=== PATIENT | female | born 1990 | race Caucasian/White ===

== ENCOUNTER 2020-10-04 19:30 | Emergency (ER) | payer OTHER, SELFPAY ==
[2020-10-04 19:42] VITALS: BP 137/86; PULSE 77; RESP 20; TEMP 37.1; O2SAT 100
[2020-10-04 20:05] LABS: Bacteria Urine None Seen
[2020-10-04 20:11] LABS: Appearance Urine UA CLEAR
[2020-10-04] MEDS: KETOROLAC 30 MG/ML VIAL 15 MG IV (20:11)
[2020-10-04 20:12] LABS: Color Urine UA ORANGE
[2020-10-04 20:15] LABS: Add Manual Diff / Slide Review NO; Basophils Absolute Auto 100 /uL (0-100); Basophils Percent Auto 0.8 % (0-2); Eosinophils Absolute Auto 300 /uL (0-450); Eosinophils Percent Auto 2.9 % (2-4); Hematocrit 41.9 % (36-46); Hemoglobin 14.3 g/dL (12.0-16.0); Lymphocytes Absolute Auto 4300 /uL (1100-4500); Lymphocytes Percent Auto 40.2 % (25-40); Mean Corpuscular Hemoglobin 29.9 PG (26-34); Mean Corpuscular Volume 87.8 fL (80-100); Monocytes Absolute Auto 500 /uL (0-900); Neutrophils Absolute Auto 5400 /uL (1500-7000); Neutrophils Percent Auto 51.1 % (50-75); Platelet Count 332 X10^3/uL (150-400); Red Blood Cell Count 4.77 X10^6/uL (4.0-5.2); Red Cell Distribution Width 13.3 % (11.6-14.8); White Blood Cell Count 10.7 X10^3/uL (4.5-11.0)
[2020-10-04 20:18] LABS: Culture Indicated Urine Cult Not Indicated; RBC Urine 0-1/HPF (0-5/HPF); Squamous Epithelial Cell Urine 0-1 /HPF (0-5/HPF); WBC Urine 0-1/HPF (0-5/HPF)
[2020-10-04 20:20] LABS: Alanine Aminotransferase 12 IU/L (<35); Albumin 4.2 g/dL (3.5-5.0); Albumin Globulin Ratio 1.2 (1.0-2.8); Alkaline Phosphatase 102 U/L (38-126); Aspartate Aminotransferase 21 IU/L (14-36); BUN Creatinine Ratio 23.1 (6-22); Bilirubin Total 0.4 mg/dL (0.2-1.3); Blood Urea Nitrogen 15 mg/dL (7-17); Calcium 9.7 mg/dL (8.4-10.2); Carbon Dioxide 26 mmol/L (22-32); Chloride 102 mmol/L (98-107); Estimated Glomerular Filt Rate > 60.0 mL/min (>60); Globulin 3.6 g/dL (1.7-4.1); Glucose 99 mg/dL (70-100); HEMOLYSIS 17 (0-50); Lipase 258 U/L (23-300); Potassium 4.3 mmol/L (3.4-5.1); Sodium 136 mmol/L (137-145); Total Protein 7.8 g/dL (6.3-8.2)
[2020-10-04 20:22] LABS: Prothrombin Time 11.5 SECONDS (10.1-12.7)
[2020-10-04 20:25] LABS: PTT Partial Thromboplastin Tim 32 SECONDS (26.4-36.2)
--- NOTE | 2020-10-04 20:38 | ED_ITS ---
HPI - Abdominal Pain General Chief Complaint: Abdominal Pain Stated Complaint: RIGHT SIDE BACK PAIN Time Seen by Provider: 10/04/20 20:13 Source: patient Mode of arrival: Ambulatory History of Present Illness HPI narrative: Patient brought here by . Patient visiting here from [place]. Complains of right flank pain starting last night. Sharp pain. No nausea vomiting fever. Has baseline urinary frequency is not new for her. Patient has long history of kidney stones with nephrostomy due to hydronephrosis years ago. No fever chills cough cold congestion. No hematuria. Has history of ureteral stents and lithotripsy in the past. Patient points to nephrostomy site/surgical site on the right flank as source of pain. Related Data Allergies Allergy/AdvReac Type Severity Reaction Status Date / Time Penicillins Allergy Verified 10/04/20 19:46 Review of Systems Review of Systems Narrative: GENERAL: Denies chills, fatigue, malaise, fever, sweats. HEENT: Denies sinus pain, ear pain, sore throat RESPIRATORY: Denies dyspnea, cough CARDIOVASCULAR: Denies chest pain, palpitations GASTROINTESTINAL: Denies nausea, vomiting, abdominal pain, complains flank pain : Denies dysuria, complaints chronic frequency, denies hematuria MUSCULOSKELETAL: denies muscle or bony pain SKIN: Denies rash, skin lesions NEUROLOGIC: Denies weakness, numbness ROS Unobtainable: All systems reviewed & are unremarkable except as noted in HPI and below Exam Narrative Exam Narrative: GENERAL: in no distress, not toxic not dyspneic HEAD: Normocephalic. EYES: Pupils equal round No scleral icterus. No injection no discharge ENT: Mucous membranes moist. NECK: Trachea midline. CARDIOVASCULAR: Regular rate and rhythm without murmurs RESPIRATORY: Clear to auscultation. Breath sounds equal bilaterally. No wheezes, rales, or rhonchi. GASTROINTESTINAL: Abdomen soft, non-tender bowel sounds present no peritoneal signs EXTREMITIES: No gross deformities. BACK: Mild right CVA tenderness at the nephrostomy surgical site. Area is clean dry intact. No erythema. No discharge NEURO: AOx4. SKIN: Warm and dry PSYCH: Not anxious, is cooperative Initial Vital Signs Initial Vital Signs: Vital Signs Temperature 98.7 F 10/04/20 19:42 Pulse Rate 77 10/04/20 19:42 Respiratory Rate 20 10/04/20 19:42 Blood Pressure 137/86 10/04/20 19:42 Pulse Oximetry 100 10/04/20 19:42 Course Course Course Narrative: No new issues during course of stay. Pain controlled. Orders Ordered: ED Orders 10/04/20 20:00 Complete Blood Count AUTO DIFF Stat Comprehensive Metabolic Panel Stat Lipase Stat Partial Thromboplastin Time Stat Test Serum,Qual Stat Prothrombin Time INR Stat 10/04/20 20:05 Urinalysis and Microscopic Stat 10/04/20 20:37 CT abdomen pelvis wo con Stat Discontinued Medications Hydrocodone Bitart/Acetaminophen (Hydrocodone/Acet 5/325 Prepack) 1 bottle [facility] [place] SEE[facility] ONE Stop: 10/04/20 22:03 Last Admin: 10/04/20 22:17 Dose: 1 bottle Documented by: NAZIA Hydromorphone HCl (Hydromorphone 1 Mg Inj) 1 mg IV NOW ONE Stop: 10/04/20 20:38 Last Admin: 10/04/20 20:44 Dose: 1 mg Documented by: JONI Ketorolac Tromethamine (Ketorolac 30 Mg/Ml Vial) 15 mg IV NOW ONE Stop: 10/04/20 20:04 Last Admin: 10/04/20 20:11 Dose: 15 mg Documented by: NAZIA Ondansetron HCl (Ondansetron 4 Mg/2 Ml Inj) 4 mg IV NOW ONE Stop: 10/04/20 20:38 Last Admin: 10/04/20 20:44 Dose: 4 mg Documented by: JONI Ondansetron HCl (Ondansetron 4 Mg Odt Prepack) 1 bottle [facility] [place] [facility] ONE Stop: 10/04/20 22:03 Last Admin: 10/04/20 22:17 Dose: 1 bottle Documented by: NAZIA Reevaluation(s) Reevaluation #1: Reviewed results with patient. Agrees with treatment plan and follow-up. Referral given for Urology. Pain controlled Time: 22:00 Vital Signs Vital signs: Vital Signs - 8 hr 10/04/20 19:42 10/04/20 22:09 10/04/20 22:11 Temperature 98.7 F Pulse Rate 77 61 Respiratory Rate 20 Blood Pressure 137/86 144/90 H Pulse Oximetry 100 99 98 MDM - Abdominal Pain Differential Diagnosis Differential diagnosis: Likely abdominal pain, calculus of kidney, diverticulitis, gastroenteritis, pancreatitis and small bowel obstruction Lab Data Attestation: I reviewed the patient's lab results. Result diagrams: 10/04/20 20:00 10/04/20 20:00 Labs: Lab Results 10/04/20 10/04/20 10/04/20 Range/Units 20:00 20:00 20:00 WBC 10.7 (4.5-11.0) X10^3/uL RBC 4.77 (4.0-5.2) X10^6/uL Hgb 14.3 (12.0-16.0) g/dL Hct 41.9 (36-46) % MCV 87.8 (80-100) fL MCH 29.9 (26-34) PG MCHC 34.0 (30-36) % RDW 13.3 (11.6-14.8) % Plt Count 332 (150-400) X10^3/uL Neut % (Auto) 51.1 (50-75) % Lymph % (Auto) 40.2 H (25-40) % [place] % (Auto) 5.0 (3-14) % Eos % (Auto) 2.9 (2-4) % Baso % (Auto) 0.8 (0-2) % Neut # (Auto) 5400 (6104-0438) /uL Lymph # (Auto) 4300 (6161-6264) /uL [place] # (Auto) 500 (0-900) /uL Eos # (Auto) 300 (0-450) /uL Baso # (Auto) 100 (0-100) /uL PT 11.5 (10.1-12.7) SECONDS INR 1.0 (0.9-1.3) APTT 32 (26.4-36.2) SECONDS Sodium 136 L (137-145) mmol/L Potassium 4.3 (3.4-5.1) mmol/L Chloride 102 (98-107) mmol/L Carbon Dioxide 26 (22-32) mmol/L BUN 15 (7-17) mg/dL Creatinine 0.65 (0.52-1.04) mg/dL Estimated GFR > 60.0 (>60) mL/min BUN/Creatinine Ratio 23.1 H (6-22) Glucose 99 (70-100) mg/dL Calcium 9.7 (8.4-10.2) mg/dL Total Bilirubin 0.4 (0.2-1.3) mg/dL AST 21 (14-36) IU/L ALT 12 (<35) IU/L Alkaline Phosphatase 102 (38-126) U/L Total Protein 7.8 (6.3-8.2) g/dL Albumin 4.2 (3.5-5.0) g/dL Globulin 3.6 (1.7-4.1) g/dL Albumin/Globulin Ratio 1.2 (1.0-2.8) Lipase 258 (23-300) U/L Serum , Qual (Negative) Urine Color Urine Appearance Urine pH Ur Specific [place] Urine Protein Urine Glucose (UA) Urine Ketones Urine Occult Blood Urine Nitrate Urine Bilirubin Urine Urobilinogen Ur Leukocyte Esterase Urine RBC (0-5/HPF) Urine WBC (0-5/HPF) Ur Squamous Epith Cells (0-5/HPF) Urine Bacteria (None) Ur Culture Indicated? 10/04/20 10/04/20 Range/Units 20:00 20:05 WBC (4.5-11.0) X10^3/uL RBC (4.0-5.2) X10^6/uL Hgb (12.0-16.0) g/dL Hct (36-46) % MCV (80-100) fL MCH (26-34) PG MCHC (30-36) % RDW (11.6-14.8) % Plt Count (150-400) X10^3/uL Neut % (Auto) (50-75) % Lymph % (Auto) (25-40) % [place] % (Auto) (3-14) % Eos % (Auto) (2-4) % Baso % (Auto) (0-2) % Neut # (Auto) (7260-1083) /uL Lymph # (Auto) (2673-4337) /uL [place] # (Auto) (0-900) /uL Eos # (Auto) (0-450) /uL Baso # (Auto) (0-100) /uL PT (10.1-12.7) SECONDS INR (0.9-1.3) APTT (26.4-36.2) SECONDS Sodium (137-145) mmol/L Potassium (3.4-5.1) mmol/L Chloride (98-107) mmol/L Carbon Dioxide (22-32) mmol/L BUN (7-17) mg/dL Creatinine (0.52-1.04) mg/dL Estimated GFR (>60) mL/min BUN/Creatinine Ratio (6-22) Glucose (70-100) mg/dL Calcium (8.4-10.2) mg/dL Total Bilirubin (0.2-1.3) mg/dL AST (14-36) IU/L ALT (<35) IU/L Alkaline Phosphatase (38-126) U/L Total Protein (6.3-8.2) g/dL Albumin (3.5-5.0) g/dL Globulin (1.7-4.1) g/dL Albumin/Globulin Ratio (1.0-2.8) Lipase (23-300) U/L Serum , Qual Negative (Negative) Urine Color [place] Urine Appearance Clear Urine pH TNP Ur Specific [place] TNP Urine Protein TNP Urine Glucose (UA) TNP Urine Ketones TNP Urine Occult Blood TNP Urine Nitrate TNP Urine Bilirubin TNP Urine Urobilinogen TNP Ur Leukocyte Esterase TNP Urine RBC 0-1/hpf (0-5/HPF) Urine WBC 0-1/hpf (0-5/HPF) Ur Squamous Epith Cells 0-1 /hpf (0-5/HPF) Urine Bacteria None seen (None) Ur Culture Indicated? Cult not indicated Imaging Data CT scan - abdomen/pelvis: Radiologist's Impression: [address] [id number] Scan ReportSigned Patient: Diandra Whitlock [facility]#: [id number]: 1990Acct:[id number]/Sex: 30 / FDate of Service: 10/04/20Loc: EDAccession Number: [id number] Procedure: CT abdomen pelvis wo con Ordering Provider: Jeffery Jerez MD PROCEDURE: CT ABDOMEN PELVIS WO CON INDICATIONS: Right flank pain/kidney stone TECHNIQUE: Noncontrast 5 mm thick sections acquired from the diaphragms to the symphysis. 5 mm coronal and sagittal reformats were then performed. For radiation dose reduction, the following was used: automated exposure control, adjustment of mA and/or kV according to patient size. COMPARISON: None. FINDINGS: ABDOMEN: Lung bases: Normal. Heart: No significant findings. Liver: Normal. Gallbladder: Normal Bile ducts: Mid Pancreas: Normal. Spleen: Normal. Adrenals: Normal. Kidneys and Ureters: Chronic appearing right renal cortical scarring and atrophy. Right nephrolithiasis measuring up to 1 mm image 23/. No hydronephrosis. Subcentimeter renal foci, statistically cysts, although technically too small to characterize accurately and therefore nonspecific. Stomach and duodenum: Normal. Bowel: Appendix is not clearly identified however no suspicious pericecal inflammatory changes are seen. Other: No free fluid or air. Abdominal nodes: Normal. Aorta and IVC: Normal in size. Ventral wall: Small fat containing periumbilical hernia. PELVIS: Bladder: Normal. Inguinal region: No hernia. Pelvic nodes: Normal. Bones: No suspicious bony lesions. No vertebral body compression fractures. IMPRESSION: Right nephrolithiasis measuring up to 1 mm. No hydronephrosis Chronic right renal atrophy and scarring. Dictated by: Deepak Ojeda M.D. on 10/04/2020 at 21:24 Approved by: Deepak Ojeda M.D. on 10/04/2020 at 21:29 MDM Narrative Medical decision making narrative: Appropriate for discharge home. Workup evaluation exam reassuring. Will give patient referral to Urology locally. Patient is leaving to go back home to [place] in 2 weeks. Discharge Plan Departure Patient Disposition: Home Clinical Impression: Calculus of kidney Instructions: DI for Kidney Stones Activity Restrictions/Additional Instructions: No driving or operating machinery tonight. Call provided urology office tomorrow for office recheck within a week. Return if worse or any questions or concerns. Referrals: Maria Lund MD [Physician] -
[2020-10-04] MEDS: ONDANSETRON 4 MG/2 ML INJ IV (20:44)
[2020-10-04] MEDS: HYDROMORPHONE 1 MG INJ IV (20:44)
[2020-10-04 20:50] LABS: Pregnancy Test Serum,Qual Negative (Negative)
[2020-10-04 22:09] VITALS: O2SAT 99
[2020-10-04 22:11] VITALS: BP 144/90; PULSE 61; O2SAT 98
[2020-10-04] MEDS: ONDANSETRON 4 MG ODT PREPACK 1 BOTTLE MISC (22:17)
[2020-10-04] MEDS: HYDROCODONE/ACET 5/325 PREPACK 1 BOTTLE MISC (22:17)
== END 2020-10-04 22:22 | disposition home or self-care (01) ==
PROVIDERS: Emergency Provider Emergency Medicine
DX: N20.0 Calculus of kidney (principal)
CPT/HCPCS: 36415; 74176; 80053; 81001; 83690; 84703; 85025; 85610; 85730; 96374; 96375; 99284; J1170; J1885; J2405

== ENCOUNTER 2020-10-13 19:19 | Inpatient (IN) | payer OTHER, SELFPAY ==
[2020-10-13] VITALS (10 sets, daily range): BP systolic 114–132; BP diastolic 67–86; PULSE 101–125; RESP 21–29; TEMP 38.5; O2SAT 96–99; BMI 38.2
[2020-10-13] MEDS: METOCLOPRAMIDE 10 MG/2 ML INJ IV (20:18)
[2020-10-13] MEDS: LACTATED RINGERS 478 ML IV (20:18)
--- NOTE | 2020-10-13 20:20 | ED_ITS ---
HPI - Headache General Chief Complaint: Headache Stated Complaint: migraine headache Time Seen by Provider: 10/13/20 19:38 Source: patient Mode of arrival: Ambulatory Limitations: no limitations History of Present Illness HPI Narrative: 30F nonsmoker with noncontributory medical history presents with a chief complaint of a few days of fever, chills, right flank pain as well as headache, neck pain and nausea and vomiting. She was seen here about a week ago and found to have a 1 mm kidney stone and was discharged on appropriate medications and given follow-up. She was seen and evaluated at an outside facility yesterday and had a repeat CT and extensive workup. She states that the headache has been gradually worsening and seems to be made worse when she moves her head or her neck. She denies any strong history of headaches. She has had nausea vomiting, poor appetite. She denies any neurologic symptoms such as blurred vision, trouble with speech or focal neurologic findings. She has had no chest pain or shortness of breath. She does have continued right flank pain and denies dysuria, frequency or urgency. She denies any vaginal bleeding or discharge. She denies recent travel or exposure to ill persons MD Complaint: headache Onset (ago): day(s) Onset description: gradual Location: diffuse Severity: moderate Quality: aching and throbbing Relieving factors: rest Exacerbating factors: movement of head/neck Associated symptoms: fever, nausea, vomiting and neck stiffness Treatments prior to arrival: none Related Data Allergies Allergy/AdvReac Type Severity Reaction Status Date / Time Penicillins Allergy Verified 10/04/20 19:46 Review of Systems Constitutional Constitutional: Reports chills, Denies fatigue, Reports fever(s), Denies frequent falls, Denies lethargy and Denies weakness Eyes Eyes: Denies change in vision, Denies eye discharge, Denies irritation and Denies loss of vision ENT Ears, Nose, Mouth, and Throat: Denies change in voice, Denies dizziness, Reports neck pain, Denies sore throat and Denies throat swelling Cardiovascular Cardiovascular: Denies chest pain, Denies irregular heart rhythm, Denies light headedness, Reports palpitations, Denies dyspnea, Denies dyspnea on exertion and Denies orthopnea Respiratory Respiratory: Denies cough, Denies dyspnea, Denies dyspnea on exertion and Denies wheezing Gastrointestinal Gastrointestinal: Denies abdominal pain, Denies change in bowel habits, Denies diarrhea, Reports nausea and Reports vomiting Musculoskeletal Musculoskeletal: Reports myalgias, Reports neck pain and Denies numbness Integumentary/Breasts Skin/Breast: Denies pruritus, Denies erythema, Denies rash and Denies wounds Neurologic Neurologic: Denies behavioral changes, Denies confusion, Denies dizziness, Denies frequent falls, Denies loss of vision, Denies numbness and Denies weakness Psychiatric Psychiatric: Denies anxiety, Denies behavioral changes, Denies confusion, Denies depression, Denies homicidal ideation and Denies suicidal ideation Endocrine Endocrine: Denies fatigue, Denies flushing and Reports palpitations Hematologic/Lymphatic Hematologic/Lymphatic: Denies easy bruising Allergic/Immunologic Allergic/Immunologic: Denies urticaria, Denies throat swelling and Denies wh eezing Patient History Social History Smoking Status: Never smoker Smoking Status: Never smoker Substance Use Type: does not use Exam Narrative Exam Narrative: GENERAL: [30] year old patient appears stated age. Well- nourished, well-developed patient, in mild distress. Obviously uncomfortable HEAD: Atraumatic. Normocephalic. EYES: Pupils equal round and reactive. Extraocular motions intact. No scleral icterus. No injection or drainage. ENT: Nose without bleeding, purulent drainage. Throat without erythema, t onsillar hypertrophy or exudate. Airway patent. NECK: Trachea midline. Non tender CARDIOVASCULAR: Tachycardic and regular rhythm without murmurs, gallops, or rubs. RESPIRATORY: Clear to auscultation. Breath sounds equal bilaterally. No wheezes, rales, or rhonchi. GASTROINTESTINAL: Abdomen soft, non-tender, nondistended. EXTREMITIES: No edema or joint tenderness. BACK: R flank pain, CVA pain. No midline tenderness NEURO: AOx3. SKIN: No rash or erythema of visible areas Initial Vital Signs Initial Vital Signs: Vital Signs Temperature 101.3 F H 10/13/20 19:54 Pulse Rate 125 H 10/13/20 19:54 Respiratory Rate 25 H 10/13/20 19:54 Blood Pressure 122/81 10/13/20 19:54 Pulse Oximetry 98 10/13/20 19:54 Course Orders Ordered: ED Orders 10/13/20 20:10 Basic Metabolic Panel Stat Complete Blood Count AUTO DIFF Stat Lactate (Lactic Acid) Stat Magnesium Stat 10/13/20 20:18 Blood Culture Stat 10/13/20 20:22 Influenza A & B (PCR) Stat 10/13/20 20:31 COVID19 - ADMIT (FUR JOINER swab/PCR) Stat 10/13/20 21:08 Urine Microscopic Stat 10/13/20 21:43 US renal complete Stat Lactated Ringer's (Lactated Ringers) 1,434 mls @ 478 mls/hr 30 ml/kg infuse over 3 hr (1434 ml) IV NOW ONE Stop: 10/13/20 23:01 Last Admin: 10/13/20 20:18 Dose: 478 mls/hr Documented by: J CARLOS Discontinued Medications Hydromorphone HCl (Hydromorphone 0.5 Mg Inj) 0.5 mg IV NOW ONE Stop: 10/13/20 22:07 Last Admin: 10/13/20 22:09 Dose: 0.5 mg Documented by: Ceftriaxone Sodium 1,000 mg/ (Sodium Chloride) 100 mls @ 200 mls/hr IV NOW ONE Stop: 10/13/20 21:44 Last Admin: 10/13/20 21:56 Dose: 200 mls/hr Documented by: [email or web address] Ketorolac Tromethamine (Ketorolac 30 Mg/Ml Vial) 15 mg IV NOW ONE Stop: 10/13/20 20:34 Last Admin: 10/13/20 20:41 Dose: 15 mg Documented by: TERI Metoclopramide HCl (Metoclopramide 10 Mg/2 Ml Inj) 10 mg IV NOW ONE Stop: 10/13/20 20:03 Last Admin: 10/13/20 20:18 Dose: 10 mg Documented by: J CARLOS Vital Signs Vital signs: Vital Signs - 8 hr 10/13/20 19:54 10/13/20 20:03 10/13/20 20:30 Temperature 101.3 F H Pulse Rate 125 H 119 H 121 H Respiratory Rate 25 H 29 H Blood Pressure 122/81 129/86 Pulse Oximetry 98 99 96 10/13/20 20:44 10/13/20 21:00 10/13/20 21:30 Temperature Pulse Rate 108 H 111 H 112 H Respiratory Rate 28 H 29 H 21 Blood Pressure 132/86 123/78 121/69 Pulse Oximetry 97 96 97 MDM - Headache Lab Data Result diagrams: 10/13/20 20:10 10/13/20 20:10 Labs: Lab Results 10/13/20 10/13/20 10/13/20 Range/Units 20:10 20:10 20:10 WBC 23.6 H (4.5-11.0) X10^3/uL RBC 4.42 (4.0-5.2) X10^6/uL Hgb 12.9 (12.0-16.0) g/dL Hct 38.3 (36-46) % MCV 86.5 (80-100) fL MCH 29.2 (26-34) PG MCHC 33.8 (30-36) % RDW 13.3 (11.6-14.8) % Plt Count 253 (150-400) X10^3/uL Neut % (Auto) 90.8 H (50-75) % Lymph % (Auto) 2.9 L (25-40) % [place] % (Auto) 6.0 (3-14) % Eos % (Auto) 0.0 L (2-4) % Baso % (Auto) 0.3 (0-2) % Neut # (Auto) 02951 H (6346-0988) /uL Lymph # (Auto) 700 L (8886-9091) /uL [place] # (Auto) 1400 H (0-900) /uL Eos # (Auto) 0 (0-450) /uL Baso # (Auto) 100 (0-100) /uL Sodium 130 L (137-145) mmol/L Potassium 3.9 (3.4-5.1) mmol/L Chloride 101 (98-107) mmol/L Carbon Dioxide 20 L (22-32) mmol/L BUN 9 (7-17) mg/dL Creatinine 0.60 (0.52-1.04) mg/dL Estimated GFR > 60.0 (>60) mL/min BUN/Creatinine Ratio 15.0 (6-22) Glucose 129 H (70-100) mg/dL Lactate 1.7 (0.7-2.1) mmol/L Calcium 9.1 (8.4-10.2) mg/dL Magnesium 1.6 (1.6-2.3) mg/dL Influenza A (RT-PCR) (NEGATIVE) Influenza B (RT-PCR) (NEGATIVE) 10/13/20 Range/Units 20:22 WBC (4.5-11.0) X10^3/uL RBC (4.0-5.2) X10^6/uL Hgb (12.0-16.0) g/dL Hct (36-46) % MCV (80-100) fL MCH (26-34) PG MCHC (30-36) % RDW (11.6-14.8) % Plt Count (150-400) X10^3/uL Neut % (Auto) (50-75) % Lymph % (Auto) (25-40) % [place] % (Auto) (3-14) % Eos % (Auto) (2-4) % Baso % (Auto) (0-2) % Neut # (Auto) (7078-5421) /uL Lymph # (Auto) (1413-6982) /uL [place] # (Auto) (0-900) /uL Eos # (Auto) (0-450) /uL Baso # (Auto) (0-100) /uL Sodium (137-145) mmol/L Potassium (3.4-5.1) mmol/L Chloride (98-107) mmol/L Carbon Dioxide (22-32) mmol/L BUN (7-17) mg/dL Creatinine (0.52-1.04) mg/dL Estimated GFR (>60) mL/min BUN/Creatinine Ratio (6-22) Glucose (70-100) mg/dL Lactate (0.7-2.1) mmol/L Calcium (8.4-10.2) mg/dL Magnesium (1.6-2.3) mg/dL Influenza A (RT-PCR) Flu a negative (NEGATIVE) Influenza B (RT-PCR) Flu b negative (NEGATIVE) Point of Care Testing Test Results Negative Urine Dip Bedside Urine Glucose Negative Bedside Urine Bilirubin - Negative Bedside Urine Ketone +/- 5 Urine Specific [place] 1.020 Bedside Urine Occult Blood - Negative Bedside Urine pH 6.5 Bedside Urine Protein + 30 Bedside Urine Urobilinogen - Negative Bedside Urine Nitrite - Negative Bedside Urine Leukocytes + 70 Esterase Imaging Data Renal US: Radiologist's Impression: No obstruction or ureteral stone MDM Narrative Medical decision making narrative: Patient feeling much better after above-st ated therapies, multiple diagnoses such as urosepsis with kidney stone and possible obstructive uropathy considered. Pyelonephritis is most likely given urine findings, fever, elevated white count and reproducible CVA tenderness. PID and other pelvic inflammatory or infectious etiologies considered but patient has no abnormal or foul-smelling discharge, no suprapubic tenderness. We did discuss the possibility of meningitis given her headache and neck pain in the setting of fever, however after further evaluation and her response to the above-stated therapies we have agreed to hold off on lumbar puncture at this point time given the low likelihood of meningitis. Patient will require hospi talization for ongoing IV fluids, pain control and IV antibiotics. Discharge Plan Departure Patient Disposition: Admitted as Observation Clinical Impression: Pyelonephritis Sepsis Qualifiers: Sepsis type: sepsis due to unspecified organism Sepsis acute organ dysfunction status: without acute organ dysfunction Qualified Code(s): A41.9 - Sepsis, unspecified organism
[2020-10-13 20:29] LABS: Add Manual Diff / Slide Review NO; Basophils Absolute Auto 100 /uL (0-100); Basophils Percent Auto 0.3 % (0-2); Eosinophils Absolute Auto 0 /uL (0-450); Hematocrit 38.3 % (36-46); Hemoglobin 12.9 g/dL (12.0-16.0); Lymphocytes Absolute Auto 700 /uL (1100-4500); Lymphocytes Percent Auto 2.9 % (25-40); Mean Corpuscular HGB Conc 33.8 % (30-36); Mean Corpuscular Hemoglobin 29.2 PG (26-34); Mean Corpuscular Volume 86.5 fL (80-100); Monocytes Absolute Auto 1400 /uL (0-900); Neutrophils Absolute Auto 21500 /uL (1500-7000); Neutrophils Percent Auto 90.8 % (50-75); Platelet Count 253 X10^3/uL (150-400); Red Blood Cell Count 4.42 X10^6/uL (4.0-5.2); Red Cell Distribution Width 13.3 % (11.6-14.8); White Blood Cell Count 23.6 X10^3/uL (4.5-11.0)
[2020-10-13 20:38] LABS: Lactate (Lactic Acid) 1.7 mmol/L (0.7-2.1)
[2020-10-13] MEDS: KETOROLAC 30 MG/ML VIAL 15 MG IV (20:41)
[2020-10-13 20:52] LABS: Blood Urea Nitrogen 9 mg/dL (7-17); Calcium 9.1 mg/dL (8.4-10.2); Carbon Dioxide 20 mmol/L (22-32); Chloride 101 mmol/L (98-107); Estimated Glomerular Filt Rate > 60.0 mL/min (>60); Glucose 129 mg/dL (70-100); HEMOLYSIS < 15 (0-50); Magnesium 1.6 mg/dL (1.6-2.3); Potassium 3.9 mmol/L (3.4-5.1); Sodium 130 mmol/L (137-145)
[2020-10-13 20:58] LABS: Influenza A - CEPHEID Flu A NEGATIVE (NEGATIVE); Influenza B - CEPHEID Flu B NEGATIVE (NEGATIVE)
--- NOTE | 2020-10-13 21:43 | DI.US.S_ITS ---
PROCEDURE: US RENAL COMPLETE INDICATIONS: UTI; SEPSIS; STONE TECHNIQUE: Real-time scanning was performed of the kidneys and bladder, with image documentation. COMPARISON: None. FINDINGS: Kidneys: Kidneys are normal in size. Right kidney measures 11.9 cm long; left kidney measures 13.4 cm long. Right renal cortical thickness is 1.6 cm; left renal cortical thickness is 2.4 cm. Renal cortical echotexture is normal. No hydronephrosis. Small 4-7 millimeter nonobstructing stones noted in the right kidney. No suspicious solid mass lesions. Bladder: Urinary bladder was nondistended the time of image acquisition and cannot be evaluated. Miscellaneous: No free pelvic fluid. IMPRESSION: 1. Nonobstructing right renal stones. 2. No hydronephrosis. Dictated by: Kathrin Watson MD, PhD on 10/14/2020 at 8:19 Approved by: Kathrin Watson MD, PhD on 10/14/2020 at 8:23
[2020-10-13] MEDS: cefTRIAXone 1,000 MG in SODIUM CHLORIDE 0.9% 100 ML 200 ML IV (21:56)
[2020-10-13] MEDS: HYDROMORPHONE 0.5 MG INJ IV (22:09)
[2020-10-13 22:59] LABS: COVID19 - ADMIT (NP swab/PCR) Negative (Negative)
[2020-10-14] VITALS (15 sets, daily range): BP systolic 103–138; BP diastolic 62–88; PULSE 86–102; RESP 16–24; TEMP 36.1–36.8; O2SAT 95–98; BMI 38.3
[2020-10-14] MEDS: HYDROMORPHONE 0.5 MG INJ IV (00:13)
[2020-10-14 00:17] LABS: RBC Urine None Seen (0-5/HPF)
[2020-10-14] MEDS: SODIUM CHLORIDE 0.9% 1,000 ML 60 ML IV (00:50)
[2020-10-14 00:53] LABS: Bacteria Urine Few (2-10); Culture Indicated Urine Specimen Cultured; Squamous Epithelial Cell Urine 1-5 /HPF (0-5/HPF); WBC Urine 1-5/HPF (0-5/HPF)
[2020-10-14] MEDS: MEROPENEM 1 GM in SODIUM CHLORIDE 0.9% 100 ML 200 ML IV ×3 (00:54→17:06)
[2020-10-14] MEDS: OXYCODONE/ACETAMINOPHEN 5/325 TABLET 2 TAB PO ×4 (01:35→14:19)
[2020-10-14] MEDS: VANCOMYCIN 1,500 MG/300 ML PIGGYBACK 200 MG IV (01:38)
--- NOTE | 2020-10-14 02:15 | PC.ADMIT ---
Addendum entered by Carrol Magallanes R.N. 10/14/20 05:45: States pain did improve to 3/10 with use of Percocet but now pain in right flank back to 6/10. Headache is only 3/10 and denies any neck pain. Medicated with Percocet. Has not voided since admission but did urinate while in ER shortly after 0000. Original Note: patient admitted to room 204 from ER per stretcher but able to walk to the bed. Is alert and oriented. Breath sounds CTA with RA sat of 98%. HRR w/telemetry reading of SR. Denies nausea although was reported to have had emesis x 2 in ER. BT present and abdomen is soft. Denies dysuria, but states she has urinary urgency. Complained of right flank pain/headache and was medicated with Percocet. Able to move self in bed. States she feels generally weak so instructed to call for assistance when needing to go to bathroom and patient verbalized understanding. Bilateral calf SCD's applied. Reviewed plan of care with patient and she verbalizes understanding. Fall risk score is moderate. Oriented to use of call light and bed controls. [address] Admission Note: The patient,Diandra Whitlock,30 y/o, was given written information regarding hospital policies, unit procedures and contact persons. Patient's smoking status: Former smoker. Vital Signs - 8 hr 10/13/20 19:54 10/13/20 20:03 10/13/20 20:30 Temperature 101.3 F H Pulse Rate 125 H 119 H 121 H Respiratory Rate 25 H 29 H Blood Pressure 122/81 129/86 Pulse Oximetry 98 99 96 10/13/20 20:44 10/13/20 21:00 10/13/20 21:30 Temperature Pulse Rate 108 H 111 H 112 H Respiratory Rate 28 H 29 H 21 Blood Pressure 132/86 123/78 121/69 Pulse Oximetry 97 96 97 10/13/20 22:00 10/13/20 22:30 10/13/20 23:00 Temperature Pulse Rate 108 H 107 H 101 H Respiratory Rate 27 H Blood Pressure 114/67 128/77 120/75 Pulse Oximetry 98 97 96 10/13/20 23:30 10/14/20 00:00 10/14/20 00:30 Temperature Pulse Rate 101 H 102 H 97 H Respiratory Rate Blood Pressure 128/72 138/88 Pulse Oximetry 96 97 95 10/14/20 00:31 10/14/20 00:50 10/14/20 01:31 Temperature 98.2 F Pulse Rate 98 H 94 H Respiratory Rate 24 Blood Pressure 123/76 124/82 Pulse Oximetry 95 98 98
[2020-10-14 05:48] LABS: Add Manual Diff / Slide Review NO; Basophils Absolute Auto 0 /uL (0-100); Basophils Percent Auto 0.3 % (0-2); Eosinophils Absolute Auto 0 /uL (0-450); Eosinophils Percent Auto 0.2 % (2-4); Hematocrit 34.2 % (36-46); Hemoglobin 11.5 g/dL (12.0-16.0); Lymphocytes Absolute Auto 1400 /uL (1100-4500); Lymphocytes Percent Auto 8.4 % (25-40); Mean Corpuscular HGB Conc 33.5 % (30-36); Mean Corpuscular Hemoglobin 29.3 PG (26-34); Mean Corpuscular Volume 87.4 fL (80-100); Monocytes Absolute Auto 1300 /uL (0-900); Neutrophils Absolute Auto 13600 /uL (1500-7000); Neutrophils Percent Auto 83.1 % (50-75); Platelet Count 192 X10^3/uL (150-400); Red Blood Cell Count 3.92 X10^6/uL (4.0-5.2); Red Cell Distribution Width 13.3 % (11.6-14.8); White Blood Cell Count 16.3 X10^3/uL (4.5-11.0)
[2020-10-14 06:08] LABS: Lactate (Lactic Acid) 0.9 mmol/L (0.7-2.1)
[2020-10-14 06:10] LABS: Alanine Aminotransferase 15 IU/L (<35); Albumin 2.8 g/dL (3.5-5.0); Albumin Globulin Ratio 0.9 (1.0-2.8); Alkaline Phosphatase 96 U/L (38-126); Aspartate Aminotransferase 17 IU/L (14-36); BUN Creatinine Ratio 18.3 (6-22); Bilirubin Total 0.4 mg/dL (0.2-1.3); Blood Urea Nitrogen 11 mg/dL (7-17); Calcium 8.3 mg/dL (8.4-10.2); Carbon Dioxide 24 mmol/L (22-32); Chloride 105 mmol/L (98-107); Estimated Glomerular Filt Rate > 60.0 mL/min (>60); Glucose 121 mg/dL (70-100); HEMOLYSIS < 15 (0-50); Magnesium 1.8 mg/dL (1.6-2.3); Potassium 3.6 mmol/L (3.4-5.1); Sodium 134 mmol/L (137-145); Total Protein 5.8 g/dL (6.3-8.2)
--- NOTE | 2020-10-14 06:14 | PM.HP.1 ---
History of Present Illness History of Present Illness Date Patient Seen: 10/14/20 Time Patient Seen: 00:28 Chief complaint: migraine headache Narrative: Patient is a 30-year-old female with a chief complaint of a few days of fever, chills, right flank pain as well as headache, neck pain and nausea and vomiting. She was seen here about a week ago and found to have a 1 mm kidney stone and was discharged on appropriate medications and given follow-up. She was seen and evaluated at [facility] yesterday and had a repeat CT and extensive workup. She was treated with IV fluids Zofran, Dilaudid and Toradol-her UA was found to be negative, CT Pelvis/abd: found a small nonobstructing stone in the right kidney no ureteral calculi with mild right perinephric inflammatory changes. Patient reports that she has a chronic history of right renal stones, that she is usually hospitalized at least once a year requiring diagnostic interventions like lithotripsy yearly, has had approximately 8 stents placed in the right kidney does not currently have any in place but the last 1 was 2 years ago. She states that the headache has been gradually worsening and seems to be made worse when she moves her head or her neck. Patient is able to perform a full range of motion with her neck without any difficulty or observed pain. She denies any strong history of headaches. She has had nausea vomiting x 3 days, poor appetite. She denies any neurologic symptoms such as blurred vision, trouble with speech or focal neurologic findings. She has had no chest pain or shortness of breath. She does have continued right flank pain and denies dysuria, frequency or urgency. She denies any vaginal bleeding or discharge. She denies recent travel or exposure to ill persons. Patient's vitals upon admit she was fever I will with a temp of 101.3?, slightly tachycardic at a 112 and increased respiratory rate of 21. Patient had an elevated white count of 23.6 which was an increase from 6/ of 22.2, neut# 21,500, patient's lactate was 1.7, sodium 130, the glucose of 129. Patient's urine was positive for leukocytes, protein, and bacteria was sent for culture. Patient met the SIRS criteria and a sepsis bundle protocol was applied. I personally reviewed patient's [facility] ER records again Patient was admitted for sepsis/pyelonephritis. Patient History Medical History (Updated 10/14/20 @ 06:36 by SILAS Zaragoza) Depression with anxiety Hypertension Medullary sponge kidney Right renal stone Surgical History (Updated 10/14/20 @ 06:36 by SILAS Zaragoza) History of lithotripsy History of nephrostomy History of renal stent Family & Social History Family History Father Hypertension Stroke Mother Cancer Social History: household members spouse,children Prior Living Arrangements House Safety & Behavioral: Feels Safe in Current Yes Environment Been Physically Hurt or No Threatened By a Person Suicidal Ideation Description None Suicide Plan Description No Plan Tobacco & Substance use: Tobacco type cigarettes Smoking Status Former smoker alcohol intake former Substance Use Type does not use Meds Home Medications and Allergies Home Medications Medication Instructions Recorded Confirmed Type acetaminophen-pyrilamine mal 2 tab PO BID PRN 10/14/20 10/14/20 History [Midol (acetaminoph-pyrilamine)] bisacodyl [Stimulant Laxative] 8.6 mg PO Q12H PRN 10/14/20 10/14/20 History escitalopram oxalate 20 mg PO DAILY 10/14/20 10/14/20 History hydrocodone-acetaminophen [Vicodin] 1 tab PO Q6H PRN 10/14/20 10/14/20 History ibuprofen 400 mg PO Q6H PRN 10/14/20 10/14/20 History losartan 100 mg PO DAILY 10/14/20 10/14/20 History metoprolol succinate 50 mg PO DAILY 10/14/20 10/14/20 History ondansetron HCl [Zofran] 4 mg PO Q6H PRN 10/14/20 10/14/20 History phenazopyridine [Pyridium] 200 mg PO QID PRN 10/14/20 10/14/20 History Allergies Allergy/AdvReac Type Severity Reaction Status Date / Time Penicillins Allergy Verified 10/04/20 19:46 Review of Systems Review of Systems ROS: Yes All systems reviewed with the patient and are negative except as otherwise documented Constitutional Constitutional: Reports body ache(s), Reports fatigue, Reports headache(s) and Reports poor appetite ENT Ears, Nose, Mouth, and Throat: Yes headache(s) Genitourinary Comments: Right-sided flank pain Neurologic Neurologic: Reports headache(s) Psychiatric Psychiatric: Reports anxiety Endocrine Endocrine: Reports fatigue Exam Vital Signs (past 8 hours): - 10/13/20 22:30 10/13/20 23:00 10/13/20 23:30 Temperature Pulse Rate 107 H 101 H 101 H Respiratory Rate Blood Pressure 128/77 120/75 128/72 Pulse Oximetry 97 96 96 10/14/20 00:00 10/14/20 00:30 10/14/20 00:31 Temperature Pulse Rate 102 H 97 H 98 H Respiratory Rate Blood Pressure 138/88 123/76 Pulse Oximetry 97 95 95 10/14/20 00:50 10/14/20 01:31 10/14/20 05:10 Temperature 98.2 F 97.9 F Pulse Rate 94 H 100 H Respiratory Rate 24 22 Blood Pressure 124/82 111/62 Pulse Oximetry 98 98 96 Oxygen Delivery Method Room Air Oxygen Flow Rate 0 Narrative Exam Narrative: General: Patient is a well-developed, well-nourished female mildly ill appearing in no distress at this time. HEENT: Normocephalic, atraumatic, extraocular muscles intact, oral pharynx is clear and mucous membranes are dry. Neck is supple and symmetric, trachea is midline, no adenopathy, no thyroid enlargement, nontender, no masses palpated. Negative for JVD Chest: Normal AP diameter and contour without kyphoscoliosis, no nasal flaring, retractions, or tachypneic labored Lungs: Auscultation of all lung tapia are clear without adventitious sounds, wheezes, rhonchi, or rales. Cardio: S1 & S2 with regular rate and rhythm without murmur, rubs, or gallops, no carotid bruit, no cardiac pulsations present. Abdomen: Soft nontender, negative for organomegaly, or masses. Bowel sounds are present in all 4 quadrants without guarding or rebound, positive Right CVA tenderness. Musculoskeletal: Muscle strength and tone are equal within normal limits, no deformity, crepitus, effusions, cyanosis, clubbing or edema present. Full range of motion intact radial and pedal pulses are normal. Skin: Warm dry and intact without rashes, ulcerations or petechiae. Neuro: Alert and orientated x3, strength is +5/5 in all extremities, sensation to touch intact, no gross deficits noted of cranial nerves. Psych: Patient has a well-kept appearance, appropriate affect, mental status attitude thought context and judgment are appropriate for age. Objective Labs Result Diagrams: 10/14/20 05:34 10/14/20 05:34 Labs: Laboratory Results - last 24 hr 10/13/20 10/13/20 10/13/20 20:10 20:10 20:10 WBC 23.6 H RBC 4.42 Hgb 12.9 Hct 38.3 MCV 86.5 MCH 29.2 MCHC 33.8 RDW 13.3 Plt Count 253 Neut % (Auto) 90.8 H Lymph % (Auto) 2.9 L [place] % (Auto) 6.0 Eos % (Auto) 0.0 L Baso % (Auto) 0.3 Neut # (Auto) 97683 H Lymph # (Auto) 700 L [place] # (Auto) 1400 H Eos # (Auto) 0 Baso # (Auto) 100 Sodium 130 L Potassium 3.9 Chloride 101 Carbon Dioxide 20 L BUN 9 Creatinine 0.60 Estimated GFR > 60.0 BUN/Creatinine Ratio 15.0 Glucose 129 H Lactate 1.7 Calcium 9.1 Magnesium 1.6 Total Bilirubin AST ALT Alkaline Phosphatase Total Protein Albumin Globulin Albumin/Globulin Ratio Urine RBC Urine WBC Ur Squamous Epith Cells Urine Bacteria Ur Culture Indicated? SARS-CoV-2 (PCR) Influenza A (RT-PCR) Influenza B (RT-PCR) 10/13/20 10/13/20 10/14/20 20:22 20:31 00:16 WBC RBC Hgb Hct MCV MCH MCHC RDW Plt Count Neut % (Auto) Lymph % (Auto) [place] % (Auto) Eos % (Auto) Baso % (Auto) Neut # (Auto) Lymph # (Auto) [place] # (Auto) Eos # (Auto) Baso # (Auto) Sodium Potassium Chloride Carbon Dioxide BUN Creatinine Estimated GFR BUN/Creatinine Ratio Glucose Lactate Calcium Magnesium Total Bilirubin AST ALT Alkaline Phosphatase Total Protein Albumin Globulin Albumin/Globulin Ratio Urine RBC None seen Urine WBC 1-5/hpf Ur Squamous Epith Cells 1-5 /hpf Urine Bacteria Few (2-10) H Ur Culture Indicated? Specimen cultured SARS-CoV-2 (PCR) Negative Influenza A (RT-PCR) Flu a negative Influenza B (RT-PCR) Flu b negative 10/14/20 10/14/20 10/14/20 05:34 05:34 05:34 WBC 16.3 H RBC 3.92 L Hgb 11.5 L Hct 34.2 L MCV 87.4 MCH 29.3 MCHC 33.5 RDW 13.3 Plt Count 192 Neut % (Auto) 83.1 H Lymph % (Auto) 8.4 L [place] % (Auto) 8.0 Eos % (Auto) 0.2 L Baso % (Auto) 0.3 Neut # (Auto) 32816 H Lymph # (Auto) 1400 [place] # (Auto) 1300 H Eos # (Auto) 0 Baso # (Auto) 0 Sodium 134 L Potassium 3.6 Chloride 105 Carbon Dioxide 24 BUN 11 Creatinine 0.60 Estimated GFR > 60.0 BUN/Creatinine Ratio 18.3 Glucose 121 H Lactate 0.9 Calcium 8.3 L Magnesium 1.8 Total Bilirubin 0.4 AST 17 ALT 15 Alkaline Phosphatase 96 Total Protein 5.8 L Albumin 2.8 L Globulin 3.0 Albumin/Globulin Ratio 0.9 L Urine RBC Urine WBC Ur Squamous Epith Cells Urine Bacteria Ur Culture Indicated? SARS-CoV-2 (PCR) Influenza A (RT-PCR) Influenza B (RT-PCR) Assessment & Plan Assessment & Plan narrative: 1. Sepsis as a result of pyelonephritis, acute, present on admission, in the setting of a nonobstructing right renal stone, acute on chronic and history of medullary sponge kidney right, acute on chronic, present on admission-patient stable -monitor airway, IV access x2 18-16 gauge, antiemetics for nausea and vomiting,consider electrolyte imbalance (K, Na, acid-base balance) -Monitor: Blood pressure, JVD, , urine output, lactate, H&H. -fluid resuscitation: Sepsis protocol then change to normal saline at 60 cc/hour a map goal > 65, urinary output > 0.5 cc/kg/hr -patient placed on telemetry, vital signs Q 4 hour, I&O Q shift goal urinary output> 0.5 milliliters/kilogram per hour, weights daily, diet: Heart healthy Labs: CBC, CMP, lactate, blood cultures, procalcitonin -Watch for increasing pCO2, monitor lactate, calcium, sodium. 2. Hypertension, chronic, not present on admission Continue patient's metoprolol and losartan 3. Depression with anxiety, acute on chronic, present on admission -patient denies suicidal ideation -continue patient's Lexapro 4. Obesity as evidence by BMI of 38.3, acute on chronic, present on admission -consideration will be given to dietary counseling Code status: Full code Surrogate decision maker: Ethan spouse COVID PCR: Negative VTE/DVT prophylaxis: Lovenox 40 mg and SCDs Scores GCS Sadia coma scale eye opening: Spontaneous Sadia coma scale verbal response: Orientated Momence coma scale motor response: Obey commands Momence coma scale total score: 15 SOFA PaO2/FIO2: >=400 mmHg Platelets: >= 150 Bilirubin: < 1.2 mg/dL Hypotension: MAP >= 70 mmHg Momence Coma Scale: 15 Renal: < 1.2 mg/dL SOFA Score: 0 Wells' Criteria for PE Clinical signs and symptoms of DVT: No PE is #1 Dx or equally likely: No Heart rate > 100: Yes Immobilization at least 3 days or surg in previous 4 weeks: No History of PE or DVT: No Hemoptysis: No Malignancy w/Treatment within 6 months or palliative: No Wells' PE Score total: 1.5
[2020-10-14] MEDS: ENOXAPARIN 40 MG/0.4 ML SYRINGE SUBCUT (09:38)
--- NOTE | 2020-10-14 12:01 | CM.IDA ---
Initial DCP Assessment Note Pt is a 30 yo female, resident of [place], [place]. Presents w/migraine headache, fever,chills and found to have Sepsis as a result of pyelonephritis PCP: CARL, unlisted Payer: [employer] Met w/patient this morning to introduce SW role. Patient's spouse is a painter mirror and so patient, spouse, and their 9 and 7 yo dtrs are traveling and living in camps this summer near family on [facility]. Patient is indp. and active at baseline and denies needs from this LABOR EXPEDITER upon DC. Kids are currently with Dad and other family members while patient is admitted. No needs expected from DC planning team although will remain available in case this changes before patient's DC. 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 No History Provided By Patient,Medical Record Prior Living Arrangements House Household Members spouse,children Type of transporation used prior to Drives own vehicle admit Independent with ADL's Yes Is patient alert and oriented? Yes Barriers to Discharge No Discharge Plan Home Transportation Arrangement Family Referrals Initiated None needed Whiteboard Updated in Patient Room with Yes name and ext. # of [employer] Machine Assembler
[2020-10-14] MEDS: VANCOMYCIN 1,000 MG/200 ML PIGGYBACK 200 MG IV ×2 (13:39→21:56)
[2020-10-14] MEDS: KETOROLAC 30 MG/ML VIAL IV ×2 (14:19→20:36)
--- NOTE | 2020-10-14 15:32 | PC.NURSE ---
PT A&OX3, able to ambulate to BR. Voided x1 400 ml mercedez colored urine. PO intake fair. Drinking adequate fluid. Pt with difficult IV start this a.m. Pharmacy and MD notified, able to retime antibiotics. VSS< afebrile on RA. LS CTA. Per pharmacy recommendations medicated simultaneously with toradol and percocet, good effect patient reports with pain level manageable at 3/10.
[2020-10-14] MEDS: OXYCODONE IR 10 MG TABLET PO ×2 (18:33→23:44)
[2020-10-14] MEDS: METOPROLOL ER 50 MG TABLET PO (20:37)
[2020-10-14] MEDS: LOSARTAN 50 MG TABLET 100 MG PO (20:37)
[2020-10-14] MEDS: ESCITALOPRAM 10 MG TABLET 20 MG PO (20:37)
[2020-10-15] VITALS (11 sets, daily range): BP systolic 129–148; BP diastolic 78–99; PULSE 82–96; RESP 16–22; TEMP 36.5–37.4; O2SAT 96–98
[2020-10-15] MEDS: MEROPENEM 1 GM in SODIUM CHLORIDE 0.9% 100 ML 200 ML IV ×3 (01:03→16:31)
[2020-10-15] MEDS: KETOROLAC 30 MG/ML VIAL IV ×4 (03:25→23:58)
[2020-10-15] MEDS: SODIUM CHLORIDE 0.9% 1,000 ML 60 ML IV (03:30)
[2020-10-15] MEDS: OXYCODONE IR 10 MG TABLET PO ×6 (04:10→23:57)
[2020-10-15] MEDS: VANCOMYCIN 1,000 MG/200 ML PIGGYBACK 200 MG IV (05:47)
[2020-10-15 05:48] LABS: Add Manual Diff / Slide Review NO; Basophils Absolute Auto 0 /uL (0-100); Basophils Percent Auto 0.3 % (0-2); Eosinophils Absolute Auto 300 /uL (0-450); Eosinophils Percent Auto 2.1 % (2-4); Hemoglobin 11.5 g/dL (12.0-16.0); Lymphocytes Absolute Auto 1600 /uL (1100-4500); Lymphocytes Percent Auto 12.9 % (25-40); Mean Corpuscular HGB Conc 32.8 % (30-36); Mean Corpuscular Hemoglobin 28.8 PG (26-34); Mean Corpuscular Volume 87.9 fL (80-100); Monocytes Absolute Auto 1200 /uL (0-900); Monocytes Percent Auto 9.7 % (3-14); Neutrophils Absolute Auto 9300 /uL (1500-7000); Platelet Count 221 X10^3/uL (150-400); Red Blood Cell Count 3.98 X10^6/uL (4.0-5.2); Red Cell Distribution Width 13.5 % (11.6-14.8); White Blood Cell Count 12.4 X10^3/uL (4.5-11.0)
[2020-10-15 06:01] LABS: Alanine Aminotransferase 16 IU/L (<35); Albumin 2.7 g/dL (3.5-5.0); Albumin Globulin Ratio 0.9 (1.0-2.8); Alkaline Phosphatase 111 U/L (38-126); Aspartate Aminotransferase 21 IU/L (14-36); BUN Creatinine Ratio 22.8 (6-22); Bilirubin Total 0.5 mg/dL (0.2-1.3); Blood Urea Nitrogen 13 mg/dL (7-17); Calcium 8.3 mg/dL (8.4-10.2); Carbon Dioxide 23 mmol/L (22-32); Chloride 106 mmol/L (98-107); Estimated Glomerular Filt Rate > 60.0 mL/min (>60); Globulin 3.1 g/dL (1.7-4.1); Glucose 103 mg/dL (70-100); HEMOLYSIS < 15 (0-50); Potassium 3.8 mmol/L (3.4-5.1); Sodium 134 mmol/L (137-145); Total Protein 5.8 g/dL (6.3-8.2)
[2020-10-15 06:09] LABS: Vancomycin Trough 8.3 ug/mL (10-20)
[2020-10-15] MEDS: VANCOMYCIN PEAK 1 REQUEST MISC (08:30)
[2020-10-15 09:10] LABS: Vancomycin Peak 18.8 ug/mL (20-40)
[2020-10-15] MEDS: ENOXAPARIN 40 MG/0.4 ML SYRINGE SUBCUT (09:52)
[2020-10-15] MEDS: VANCOMYCIN 1,250 MG/250 ML PIGGYBACK 200 MG IV ×2 (11:13→19:49)
[2020-10-15] MEDS: PHENAZOPYRIDINE 100 MG TABLET PO ×2 (17:11→20:51)
[2020-10-15] MEDS: MAGNESIUM HYDROXIDE 30 ML UDC PO (17:14)
--- NOTE | 2020-10-15 20:30 | P.PN_ITS ---
Subjective Subjective Date Patient Seen: 10/15/20 Time Patient Seen: 10:30 Interval history: Today she is feeling better. No headache, neck pain much improved. She continues to have R flank tenderness. She still has dysuria. She has no fevers/chills. Exam Vital Signs (past 8 hours): - 10/15/20 12:50 10/15/20 16:00 10/15/20 16:10 Temperature 97.7 F 98.3 F Pulse Rate 92 H 86 Respiratory Rate 17 16 Blood Pressure 130/78 133/90 Pulse Oximetry 98 96 98 10/15/20 20:00 Temperature 97.9 F Pulse Rate 82 Respiratory Rate 16 Blood Pressure 129/96 H Pulse Oximetry 96 Oxygen Delivery Method Room Air Oxygen Flow Rate 0 Narrative Exam Narrative: General: no acute distress HEENT: moist mucous membranes, no nuchal rigidity Lungs: clear with no wheezes, rhonchi, or rales. Cardio: regular rate and rhythm without murmur, rubs, or gallops Abdomen: Soft nontender, negative for organomegaly, or masses. right cva tenderness Skin: Warm dry and intact without rashes NEURO: awake and alert and oriented x4, no confusion, normal strength in upper and lower extremities Objective Labs Result Diagrams: 10/15/20 05:30 10/15/20 05:30 Labs: Laboratory Results - last 24 hr 10/15/20 10/15/20 10/15/20 05:30 05:30 05:30 WBC 12.4 H RBC 3.98 L Hgb 11.5 L Hct 35.0 L MCV 87.9 MCH 28.8 MCHC 32.8 RDW 13.5 Plt Count 221 Neut % (Auto) 75.0 Lymph % (Auto) 12.9 L [place] % (Auto) 9.7 Eos % (Auto) 2.1 Baso % (Auto) 0.3 Neut # (Auto) 9300 H Lymph # (Auto) 1600 [place] # (Auto) 1200 H Eos # (Auto) 300 Baso # (Auto) 0 Sodium 134 L Potassium 3.8 Chloride 106 Carbon Dioxide 23 BUN 13 Creatinine 0.57 Estimated GFR > 60.0 BUN/Creatinine Ratio 22.8 H Glucose 103 H Calcium 8.3 L Total Bilirubin 0.5 AST 21 ALT 16 Alkaline Phosphatase 111 Total Protein 5.8 L Albumin 2.7 L Globulin 3.1 Albumin/Globulin Ratio 0.9 L Vancomycin Peak Vancomycin Trough 8.3 L 10/15/20 08:30 WBC RBC Hgb Hct MCV MCH MCHC RDW Plt Count Neut % (Auto) Lymph % (Auto) [place] % (Auto) Eos % (Auto) Baso % (Auto) Neut # (Auto) Lymph # (Auto) [place] # (Auto) Eos # (Auto) Baso # (Auto) Sodium Potassium Chloride Carbon Dioxide BUN Creatinine Estimated GFR BUN/Creatinine Ratio Glucose Calcium Total Bilirubin AST ALT Alkaline Phosphatase Total Protein Albumin Globulin Albumin/Globulin Ratio Vancomycin Peak 18.8 L Vancomycin Trough [facility] Medical History (Updated 10/14/20 @ 06:36 by SILAS Zaragoza) Depression with anxiety Hypertension Medullary sponge kidney Right renal stone Surgical History (Updated 10/14/20 @ 06:36 by SILAS Zaragoza) History of lithotripsy History of nephrostomy History of renal stent Family History Father Hypertension Stroke Mother Cancer Social History household members: spouse and children Smoking Status: Former smoker alcohol intake: former Assessment & Plan Assessment & Plan narrative: Ms. Whitlock is a 30W admitted with fevers, leukocyosis found to have sepsis from pyelonephritis 1. Sepsis as a result of pyelonephritis, acute, present on admission, in the setting of a nonobstructing right renal stone, with history of medullary sponge kidney -monitor airway, IV access x2 18-16 gauge, antiemetics for nausea and vomiting,consider electrolyte imbalance (K, Na, acid-base balance) -Monitor: Blood pressure, urine output, lactate, H&H. -initially had fluid resuscitation: Sepsis protocol then changed to normal saline at 60cc/hr -patient placed on telemetry, vital signs Q 4 hour, I&O Q shift goal urinary output> 0.5 milliliters/kilogram per hour, weights daily, diet: Heart healthy -on vancomycin and meropenem for pyelonephritis -repeat urinalysis and urine culture as appears contaminated 2. Hypertension, chronic, not present on admission Continue patient's metoprolol and losartan now that sepsis resolving 3. Depression with anxiety, acute on chronic, present on admission -patient denies suicidal ideation -continue patient's Lexapro 4. Obesity as evidence by BMI of 38.3, acute on chronic, present on admission -consideration will be given to dietary counseling Code status: Full code Surrogate decision maker: Ethan spouse COVID PCR: Negative VTE/DVT prophylaxis: Lovenox 40 mg and SCDs
[2020-10-15] MEDS: LOSARTAN 50 MG TABLET 100 MG PO (20:50)
[2020-10-15] MEDS: ESCITALOPRAM 10 MG TABLET 20 MG PO (20:50)
[2020-10-15] MEDS: METOPROLOL ER 50 MG TABLET PO (20:51)
[2020-10-15] MEDS: DOCUSATE 100 MG CAPSULE PO (20:58)
[2020-10-16] VITALS (13 sets, daily range): BP systolic 118–148; BP diastolic 77–100; PULSE 74–107; RESP 16–22; TEMP 36.2–37.3; O2SAT 94–98
[2020-10-16] MEDS: MEROPENEM 1 GM in SODIUM CHLORIDE 0.9% 100 ML 200 ML IV ×3 (00:01→16:20)
[2020-10-16] MEDS: VANCOMYCIN 1,250 MG/250 ML PIGGYBACK 200 MG IV (03:40)
[2020-10-16] MEDS: OXYCODONE IR 10 MG TABLET PO ×3 (03:46→13:09)
[2020-10-16] MEDS: SODIUM CHLORIDE 0.9% 1,000 ML 60 ML IV ×2 (04:28→23:09)
[2020-10-16] MEDS: SODIUM CHLORIDE 0.9% FLUSH 10 ML IV (05:27)
[2020-10-16] MEDS: KETOROLAC 30 MG/ML VIAL IV ×2 (05:28→23:02)
[2020-10-16 06:11] LABS: Add Manual Diff / Slide Review NO; Basophils Absolute Auto 0 /uL (0-100); Basophils Percent Auto 0.3 % (0-2); Eosinophils Absolute Auto 500 /uL (0-450); Eosinophils Percent Auto 4.5 % (2-4); Hematocrit 32.4 % (36-46); Hemoglobin 10.9 g/dL (12.0-16.0); Lymphocytes Absolute Auto 1800 /uL (1100-4500); Lymphocytes Percent Auto 18.4 % (25-40); Mean Corpuscular HGB Conc 33.7 % (30-36); Mean Corpuscular Hemoglobin 29.5 PG (26-34); Mean Corpuscular Volume 87.4 fL (80-100); Monocytes Absolute Auto 1200 /uL (0-900); Monocytes Percent Auto 12.5 % (3-14); Neutrophils Absolute Auto 6400 /uL (1500-7000); Neutrophils Percent Auto 64.3 % (50-75); Platelet Count 238 X10^3/uL (150-400); Red Blood Cell Count 3.71 X10^6/uL (4.0-5.2); Red Cell Distribution Width 13.5 % (11.6-14.8); White Blood Cell Count 9.9 X10^3/uL (4.5-11.0)
[2020-10-16 06:34] LABS: Alanine Aminotransferase 16 IU/L (<35); Albumin 2.6 g/dL (3.5-5.0); Albumin Globulin Ratio 0.9 (1.0-2.8); Alkaline Phosphatase 106 U/L (38-126); Aspartate Aminotransferase 20 IU/L (14-36); BUN Creatinine Ratio 21.1 (6-22); Bilirubin Total 0.3 mg/dL (0.2-1.3); Blood Urea Nitrogen 12 mg/dL (7-17); Calcium 8.3 mg/dL (8.4-10.2); Carbon Dioxide 27 mmol/L (22-32); Chloride 106 mmol/L (98-107); Estimated Glomerular Filt Rate > 60.0 mL/min (>60); Glucose 93 mg/dL (70-100); HEMOLYSIS < 15 (0-50); Potassium 4.3 mmol/L (3.4-5.1); Sodium 135 mmol/L (137-145); Total Protein 5.6 g/dL (6.3-8.2)
[2020-10-16] MEDS: PHENAZOPYRIDINE 100 MG TABLET PO ×3 (08:18→20:32)
[2020-10-16] MEDS: DOCUSATE 100 MG CAPSULE PO ×2 (08:18→20:33)
[2020-10-16] MEDS: ENOXAPARIN 40 MG/0.4 ML SYRINGE SUBCUT (08:19)
[2020-10-16] MEDS: HYDROMORPHONE 0.5 MG INJ IV (10:21)
--- NOTE | 2020-10-16 11:25 | P.PN_ITS ---
Subjective Subjective Date Patient Seen: 10/16/20 Time Patient Seen: 09:25 Interval history: Today she is understandably worried because she continues to have right flank pain. She has no fevers/chills. Dysuria has resolved. Her headache has resolved. Exam Vital Signs (past 8 hours): - 10/16/20 04:00 10/16/20 07:47 10/16/20 08:00 Temperature 97.7 F 97.2 F L Pulse Rate 85 85 74 Respiratory Rate 22 16 16 Blood Pressure 118/77 131/84 Pulse Oximetry 97 97 96 Oxygen Delivery Method Room Air Oxygen Flow Rate 0 Narrative Exam Narrative: General: no acute distress HEENT: moist mucous membranes, no nuchal rigidity Lungs: clear with no wheezes, rhonchi, or rales. Cardio: regular rate and rhythm without murmur, rubs, or gallops Abdomen: Soft nontender, negative for organomegaly, or masses. right cva tenderness Skin: Warm dry and intact without rashes NEURO: awake and alert and oriented x4, no confusion, normal strength in upper and lower extremities Objective Labs Result Diagrams: 10/16/20 06:00 10/16/20 06:00 Labs: Laboratory Results - last 24 hr 10/16/20 10/16/20 06:00 06:00 WBC 9.9 RBC 3.71 L Hgb 10.9 L Hct 32.4 L MCV 87.4 MCH 29.5 MCHC 33.7 RDW 13.5 Plt Count 238 Neut % (Auto) 64.3 Lymph % (Auto) 18.4 L [place] % (Auto) 12.5 Eos % (Auto) 4.5 H Baso % (Auto) 0.3 Neut # (Auto) 6400 Lymph # (Auto) 1800 [place] # (Auto) 1200 H Eos # (Auto) 500 H Baso # (Auto) 0 Sodium 135 L Potassium 4.3 Chloride 106 Carbon Dioxide 27 BUN 12 Creatinine 0.57 Estimated GFR > 60.0 BUN/Creatinine Ratio 21.1 Glucose 93 Calcium 8.3 L Total Bilirubin 0.3 AST 20 ALT 16 Alkaline Phosphatase 106 Total Protein 5.6 L Albumin 2.6 L Globulin 3.0 Albumin/Globulin Ratio 0.9 L PFSH Medical History (Updated 10/14/20 @ 06:36 by SILAS Zaragoza) Depression with anxiety Hypertension Medullary sponge kidney Right renal stone Surgical History (Updated 10/14/20 @ 06:36 by DINO Zaragoza-) History of lithotripsy History of nephrostomy History of renal stent Family History Father Hypertension Stroke Mother Cancer Social History household members: spouse and children Smoking Status: Former smoker alcohol intake: former Assessment & Plan Assessment & Plan narrative: Ms. Whitlock is a 30W admitted with fevers, leukocyosis found to have sepsis from pyelonephritis 1. Pyelonephritis, acute, present on admission, in the setting of a nonobstructing right renal stone, with history of medullary sponge kidney -sepsis ruled out -patient placed on telemetry, vital signs Q 4 hour, I&O Q shift goal urinary output> 0.5 milliliters/kilogram per hour, weights daily, diet: Heart healthy -on vancomycin and meropenem for pyelonephritis initially, will stop vancomycin today 10/16 -repeat urinalysis and urine culture as appears contaminated -ultrasound of kidney given continued pain to eval for possible obstructing stone, abscess 2. Hypertension, chronic, not present on admission Continue patient's metoprolol and losartan now that sepsis resolving 3. Depression with anxiety, acute on chronic, present on admission -patient denies suicidal ideation -continue patient's Lexapro 4. Obesity as evidence by BMI of 38.3, acute on chronic, present on admission -consideration will be given to dietary counseling Code status: Full code Surrogate decision maker: Ethan spouse COVID PCR: Negative VTE/DVT prophylaxis: Lovenox 40 mg and SCDs
--- NOTE | 2020-10-16 11:30 | DI.US.S_ITS ---
PROCEDURE: US PELVIC COMPLETE INDICATIONS: RIGHT FLANK PAIN TECHNIQUE: Real-time scanning was performed of the pelvic organs, with image documentation. Additional endovaginal scanning was necessary due to incomplete visualization of the adnexal and endometrial structures by transabdominal scanning. COMPARISON: None. FINDINGS: Uterus: Uterus is normal in size at 4.9 x 5.0 x 8.4 cm. The endometrium measures 7.5 mm in combined thickness. Ovaries: The right ovary measures 3.6 x 1.4 x 3.4 cm in the left ovary measures 3.2 x 2.2 x 2.6 cm. There is a mildly complex left ovarian cyst measuring 1.9 cm. Other: No pathologic free abdominal or pelvic fluid. Incidental note is made of several small nonobstructive right renal collecting system calculi. IMPRESSION: No evidence of ovarian torsion bilaterally. Small minimally complex left ovarian cyst. No uterine abnormality is found. Ovaries appear normal for age otherwise. Several small nonobstructive right renal collecting system calculi can be seen. CT scanning would be necessary to determine whether a ureteral stone might be present in the areas obscured by bowel gas. Dictated by: Amor Nuñez M.D. on 10/16/2020 at 12:15 Approved by: Amor Nuñez M.D. on 10/16/2020 at 12:18
[2020-10-16] MEDS: LORazepam 0.5 MG TABLET PO ×2 (13:09→22:58)
[2020-10-16] MEDS: ACETAMINOPHEN 325 MG TABLET 650 MG PO (13:12)
[2020-10-16 13:43] LABS: Bacteria Urine None Seen; RBC Urine None Seen (0-5/HPF); WBC Urine None Seen (0-5/HPF)
--- NOTE | 2020-10-16 14:09 | PC.NURSE ---
Pt c/o of R flank pain this a.m. 7/10 pain. Denies headache and neck pain this a.m. Reports sitting up in bed is painful, lying in bed majority of the day, only up to use the bathroom. Ambulating independently. NSR-ST on telemetry. VSS, afebrile on RA. LS CTA. LBM 6/5. Pt medicated with PRN oxycodone 10mg and toradol, which she reported to be ineffective bringing pain level down to 6/10. MD notified and received x1 dose of 0.5mg IV hydromorphone. Pt still complaining of pain 6/10 to R flank region. RN requested recommendation from pharmacy, and administered tylenol with prn oxycodone, and 0.5mg ativan. US of kidneys completed. Continuous monitoring.
[2020-10-16 14:22] LABS: Appearance Urine UA CLEAR; Bilirubin Urine UA NEGATIVE (NEGATIVE); Color Urine UA YELLOW; Glucose Urine UA NEGATIVE (Negative); Ketones Urine UA NEGATIVE (NEGATIVE); Leukocyte Esterase Urine UA NEGATIVE (NEGATIVE); Nitrite Urine UA POSITIVE (Negative); Occult Blood Urine UA NEGATIVE (Negative); Protein Urine UA NEGATIVE (Negative); Urobilinogen Urine UA 0.2 E.U./dL (0.2)
[2020-10-16 14:36] LABS: Culture Indicated Urine Specimen Cultured
[2020-10-16] MEDS: HYDROMORPHONE 1 MG INJ IV (16:21)
[2020-10-16] MEDS: LOSARTAN 50 MG TABLET 100 MG PO (20:32)
[2020-10-16] MEDS: ESCITALOPRAM 10 MG TABLET 20 MG PO (20:33)
[2020-10-16] MEDS: HYDROMORPHONE 4 MG TABLET PO (20:33)
[2020-10-16] MEDS: METOPROLOL ER 50 MG TABLET PO (20:33)
[2020-10-17] VITALS (12 sets, daily range): BP systolic 122–152; BP diastolic 73–103; PULSE 73–91; RESP 14–18; TEMP 36.1–36.4; O2SAT 95–98
[2020-10-17] MEDS: HYDROMORPHONE 4 MG TABLET PO ×5 (00:41→20:51)
[2020-10-17] MEDS: DOCUSATE 100 MG CAPSULE PO ×2 (08:36→20:52)
[2020-10-17] MEDS: PHENAZOPYRIDINE 100 MG TABLET PO ×3 (08:36→20:52)
[2020-10-17] MEDS: ENOXAPARIN 40 MG/0.4 ML SYRINGE SUBCUT (08:36)
[2020-10-17] MEDS: MEROPENEM 1 GM in SODIUM CHLORIDE 0.9% 100 ML 200 ML IV ×3 (08:36→16:02)
[2020-10-17] MEDS: KETOROLAC 30 MG/ML VIAL IV ×3 (08:40→20:52)
[2020-10-17] MEDS: ACETAMINOPHEN 325 MG TABLET 650 MG PO (12:47)
--- NOTE | 2020-10-17 13:20 | PM.PN.1 ---
Subjective Subjective Date Patient Seen: 10/17/20 Time Patient Seen: 08:20 Interval history: Today she feels better overall, but still has right sided flank pain. Under better control with opiates. Has intermittent headache. No fevers/chills. No confusion Exam Vital Signs (past 8 hours): - 10/17/20 08:09 10/17/20 08:12 10/17/20 13:00 Temperature 97.6 F 97.1 F L Pulse Rate 84 80 75 Respiratory Rate 18 14 14 Blood Pressure 147/96 H 141/88 H Pulse Oximetry 97 96 95 Oxygen Delivery Method Room Air Oxygen Flow Rate 0 Narrative Exam Narrative: General: no acute distress HEENT: moist mucous membranes, no nuchal rigidity Lungs: clear with no wheezes, rhonchi, or rales. Cardio: regular rate and rhythm without murmur, rubs, or gallops Abdomen: Soft nontender, negative for organomegaly, or masses. right cva tenderness Skin: Warm dry and intact without rashes NEURO: awake and alert and oriented x4, no confusion, normal strength in upper and lower extremities Objective Labs Result Diagrams: 10/16/20 06:00 10/16/20 06:00 Labs: Laboratory Results - last 24 hr 10/16/20 13:00 Urine Color Yellow Urine Appearance Clear Urine pH 6.0 Ur Specific Coulter 1.020 Urine Protein Negative Urine Glucose (UA) Negative Urine Ketones Negative Urine Occult Blood Negative Urine Nitrate Positive H Urine Bilirubin Negative Urine Urobilinogen 0.2 Ur Leukocyte Esterase Negative Urine RBC None seen Urine WBC None seen Urine Bacteria None seen Ur Culture Indicated? Specimen cultured [facility] Medical History (Updated 10/14/20 @ 06:36 by SILAS Zaragoza) Depression with anxiety Hypertension Medullary sponge kidney Right renal stone Surgical History (Updated 10/14/20 @ 06:36 by SILAS Zaragoza) History of lithotripsy History of nephrostomy History of renal stent Family History Father Hypertension Stroke Mother Cancer Social History household members: spouse and children Smoking Status: Former smoker alcohol intake: former Assessment & Plan Assessment & Plan narrative: Ms. Whitlock is a 30W admitted with fevers, leukocyosis found to have sepsis from pyelonephritis 1. Pyelonephritis, acute, present on admission, in the setting of a nonobstructing right renal stone, with history of medullary sponge kidney -sepsis ruled out -patient placed on telemetry, vital signs Q 4 hour, I&O Q shift goal urinary output> 0.5 milliliters/kilogram per hour, weights daily, diet: Heart healthy -on vancomycin and meropenem for pyelonephritis initially, will stop vancomycin today 10/16 -repeat urinalysis and urine culture as initial appears contaminated -repeat ultrasound 10/16 showed no ovarian pathology, and stable nonobstructing kidney stones 2. Hypertension, chronic, not present on admission Continue patient's metoprolol and losartan now that sepsis resolving 3. Depression with anxiety, acute on chronic, present on admission -patient denies suicidal ideation -continue patient's Lexapro 4. Obesity as evidence by BMI of 38.3, acute on chronic, present on admission -consideration will be given to dietary counseling Code status: Full code Surrogate decision maker: Ethan spouse COVID PCR: Negative VTE/DVT prophylaxis: Lovenox 40 mg and SCDs
--- NOTE | 2020-10-17 15:34 | CM.DPC ---
DCP Continued: SHRUTI Valdovinos met with patient this date. She continues to anticipate DC with and children in an RV. PLAN: Continue to anticipate discharge home. CM Team to continue to follow SHRUTI Curtis MSW Student
[2020-10-17] MEDS: METOPROLOL ER 50 MG TABLET PO (20:52)
[2020-10-17] MEDS: LOSARTAN 50 MG TABLET 100 MG PO (20:52)
[2020-10-17] MEDS: ESCITALOPRAM 10 MG TABLET 20 MG PO (20:52)
[2020-10-17] MEDS: SODIUM CHLORIDE 0.9% FLUSH 10 ML IV (20:53)
[2020-10-18] VITALS (7 sets, daily range): BP systolic 140–148; BP diastolic 75–102; PULSE 65–79; RESP 14–16; TEMP 36.3–36.6; O2SAT 94–98
[2020-10-18] MEDS: HYDROMORPHONE 4 MG TABLET PO ×2 (00:58→05:01)
[2020-10-18] MEDS: MEROPENEM 1 GM in SODIUM CHLORIDE 0.9% 100 ML 200 ML IV ×2 (00:58→08:36)
[2020-10-18] MEDS: LORazepam 0.5 MG TABLET PO (00:58)
[2020-10-18] MEDS: KETOROLAC 30 MG/ML VIAL IV (03:16)
[2020-10-18 05:58] LABS: Hematocrit 34.2 % (36-46); Hemoglobin 11.6 g/dL (12.0-16.0); Mean Corpuscular Hemoglobin 29.4 PG (26-34); Mean Corpuscular Volume 86.4 fL (80-100); Platelet Count 313 X10^3/uL (150-400); Red Blood Cell Count 3.95 X10^6/uL (4.0-5.2); Red Cell Distribution Width 13.4 % (11.6-14.8); White Blood Cell Count 8.2 X10^3/uL (4.5-11.0)
[2020-10-18 06:13] LABS: BUN Creatinine Ratio 20.5 (6-22); Blood Urea Nitrogen 8 mg/dL (7-17); Carbon Dioxide 28 mmol/L (22-32); Chloride 104 mmol/L (98-107); Estimated Glomerular Filt Rate > 60.0 mL/min (>60); Glucose 95 mg/dL (70-100); Sodium 136 mmol/L (137-145)
[2020-10-18 06:15] LABS: Calcium 8.8 mg/dL (8.4-10.2); HEMOLYSIS < 15 (0-50); Potassium 4.2 mmol/L (3.4-5.1)
--- NOTE | 2020-10-18 08:35 | PM.DS.1 ---
History of Present Illness History of Present Illness Chief complaint: migraine headache Narrative: Per H and P from Lizzy Albright: Patient is a 30-year-old female with a chief complaint of a few days of fever, chills, right flank pain as well as headache, neck pain and nausea and vomiting. She was seen here about a week ago and found to have a 1 mm kidney stone and was discharged on appropriate medications and given follow-up. She was seen and evaluated at [facility] yesterday and had a repeat CT and extensive workup. She was treated with IV fluids Zofran, Dilaudid and Toradol-her UA was found to be negative, CT Pelvis/abd: found a small nonobstructing stone in the right kidney no ureteral calculi with mild right perinephric inflammatory changes. Patient reports that she has a chronic history of right renal stones, that she is usually hospitalized at least once a year requiring diagnostic interventions like lithotripsy yearly, has had approximately 8 stents placed in the right kidney does not currently have any in place but the last 1 was 2 years ago. She states that the headache has been gradually worsening and seems to be made worse when she moves her head or her neck. Patient is able to perform a full range of motion with her neck without any difficulty or observed pain. She denies any strong history of headaches. She has had nausea vomiting x 3 days, poor appetite. She denies any neurologic symptoms such as blurred vision, trouble with speech or focal neurologic findings. She has had no chest pain or shortness of breath. She does have continued right flank pain and denies dysuria, frequency or urgency. She denies any vaginal bleeding or discharge. She denies recent travel or exposure to ill persons. Patient's vitals upon admit she was fever I will with a temp of 101.3?, slightly tachycardic at a 112 and increased respiratory rate of 21. Patient had an elevated white count of 23.6 which was an increase from 6/2 of 22.2, neut# 21,500, patient's lactate was 1.7, sodium 130, the glucose of 129. Patient's urine was positive for leukocytes, protein, and bacteria was sent for culture. Patient met the SIRS criteria and a sepsis bundle protocol was applied. I personally reviewed patient's [facility] records again Patient was admitted for sepsis/pyelonephritis. Discharge Providers Provider Date of admission: 10/13/20 23:22 Discharge Date: 10/18/20 Discharge provider: Gurjit Reaves MD Summary Hospital Course Discharge Diagnosis: 1. Acute pyelonephritis 2. Hypertension 3. Depression with anxiety 4. Obesity 5. Medullary sponge kidney 6. Nonobstructing right renal stone Hospital Course: Ms. Whitlock was admitted with R flank pain and found to have positive urinalysis. Her urine culture initially returned as contaminated. She initially had a WBC over 20, which normalized by day of discharge. She was initially having dysuria, which improved at discharge. She continued to have R flank pain, though the pain improved. She did not have any obstructing kidney stone. She has known medullary sponge kidney, which is commonly painful, and it may be partially related to this diagnosis, as her pain did not completely resolve though her infection appeared under good control. She was discharged with oral antibiotics, levofloxacin, to complete an additional 7 days of antibiotics to complete a course of treatment for pyelonephritis. She was given information to try to establish outpatient follow up with a doctor as she is here visiting for the next month. Exam Vital Signs (past 8 hours): Oxygen Delivery Method Room Air Oxygen Flow Rate 0 Narrative Exam Narrative: General: no acute distress HEENT: moist mucous membranes, no nuchal rigidity Lungs: clear with no wheezes, rhonchi, or rales. Cardio: regular rate and rhythm without murmur, rubs, or gallops Abdomen: Soft nontender, negative for organomegaly, or masses. right cva tenderness Skin: Warm dry and intact without rashes NEURO: awake and alert and oriented x4, no confusion, normal strength in upper and lower extremities Objective Labs Result Diagrams: 10/18/20 05:50 10/18/20 05:50 [facility] Medical History (Updated 10/19/20 @ 00:00 by ) Depression with anxiety Hypertension Medullary sponge kidney Right renal stone Surgical History (Updated 10/14/20 @ 06:36 by SILAS Zaragoza) History of lithotripsy History of nephrostomy History of renal stent Family History Father Hypertension Stroke Mother Cancer Social History household members: spouse and children Smoking Status: Former smoker alcohol intake: former Discharge Plan Discharge Plan Patient Disposition: Home Provider Discharge Comment: Ms. Whitlock was admitted with a urine infection, called pyelonephritis. She initially had a very high white count of 22, but improved to 8 on discharge indicating she had good response to antibiotics. She still had some flank pain so will be discharged on pain medications. She should continue taking antibiotics for another week. She will try to find a doctor in the area to see as an outpatient while she is visiting [place]. Discharge orders & Medications Prescriptions: New hydrocodone-acetaminophen 10-325 mg Tablet 1 tab PO Q4HR PRN (Reason: Pain, Moderate (4-6)) Qty: 16 RF: 0 phenazopyridine 100 mg Tablet 100 mg PO TID Qty: 15 RF: 0 levofloxacin 750 mg tablet 750 mg PO Q24H Qty: 7 RF: 0 Continued losartan 100 mg Tablet 100 mg PO DAILY RF: 0 escitalopram oxalate 20 mg Tablet 20 mg PO DAILY RF: 0 metoprolol succinate 50 mg Tablet Extended Release 24 Hr 50 mg PO DAILY RF: 0 bisacodyl 5 mg Tablet 8.6 mg PO Q12H PRN (Reason: Constipation) RF: 0 phenazopyridine [Pyridium] 200 mg Tablet 200 mg PO QID PRN (Reason: kidney pain) RF: 0 Discontinued ibuprofen 200 mg Capsule 400 mg PO Q6H PRN (Reason: pain) RF: 0 hydrocodone-acetaminophen [Vicodin] 5-300 mg Tablet 1 tab PO Q6H PRN (Reason: pain) RF: 0 Midol (acetaminoph-pyrilamine) 325-12.5 mg Tablet 2 tab PO BID PRN (Reason: Menstrual Cramps) RF: 0 ondansetron HCl [Zofran] 4 mg Tablet 4 mg PO Q6H PRN (Reason: Nausea) RF: 0 Diet/Activity/Treatments Diet: Diet as Tolerated Visit Report/Discharge Packet Instructions: Kidney Stones -- Adult, Kidney Infection, DI for Prescription Opioid Use, Phenazopyridine, Levofloxacin Quality MIPS - DC The patient has current or prior documentation of left ventricular ejection fraction (LVEF) less than 40%, or moderate or severely depressed left ventricular systolic function.: No
[2020-10-18] MEDS: PHENAZOPYRIDINE 100 MG TABLET PO (08:36)
[2020-10-18] MEDS: DOCUSATE 100 MG CAPSULE PO (08:36)
[2020-10-18] MEDS: HYDROCODONE/ACET 10/325 TABLET 1 TAB PO (10:33)
--- NOTE | 2020-10-18 12:28 | PC.NURSE ---
DI given to pt, discussed- medications, worsening symptoms, f/u appts, reasons to seek medical attention. IV removed, intact, tolerated well. Pt dressed and packed belongings independently. Pt to call when her arrives at the ER entrance, will escort her to POV via w/c.
--- NOTE | 2020-10-18 12:55 | CM.DPC ---
DCP Discharge Home Per MD, pt is medically stable to d/c home today and recommend follow up with a primary physician. MAKEDA met with pt briefly right before she discharged and confirmed that she is likely here in [place] for another days but plan is still to return with her family to [place]. Pt has [employer] for insurance and is unsure how to follow up with a physician after d/c. Per admissions counselor notes, pt is covered for any ER out of state of [place] but in [place] her insurance falls under the umbrella of [employer]. SW printed off the [facility] offices and walk in clinic information and pt stated she could print off the [facility] Walk [facility] clinic info and pt is not planning to Establish with PCP here in [place] as she is headed back home to [place] and has her established PCP there. Therefore, pt likely to just go to Walk In clinic for follow up as she will not be here long enough to establish new PCP. Pt's transport is downstairs and pt agreeable with d/c and just worried about a flare up. Pt comfortable with calling the number MAKEDA provided for clinics and [employer] number for help with finding an MD to follow with. Heike Tillman, SHRUTI
== END 2020-10-18 13:00 | disposition home or self-care (01) | DRG 690 ==
LOC: ED 22:27 → AC 10-14 11:39
PROVIDERS: Internal Medicine; Admitting Provider Nurse Practitioner Family; Emergency Provider Emergency Medicine; Referring Provider Emergency Medicine; Visit Provider Nurse Practitioner Family
DX: N10 Acute pyelonephritis (principal); Q61.5 Medullary cystic kidney; F41.8 Other specified anxiety disorders; I10 Essential (primary) hypertension; Z87.891 Personal history of nicotine dependence; Z20.822 Contact with and (suspected) exposure to COVID-19; N20.0 Calculus of kidney
CPT/HCPCS: 36415; 76770; 76830; 76856; 80048; 80053; 80202; 81001; 81003; 81015; 81025; 83605; 83735; 85025; 85027; 87040; 87086; 87502; 87635; 93005; 94760; 96361; 96365; 96375; 96376; 99284; 99406; C9803; J0696; J1170; J1650; J1885; J2185; J2765

== ENCOUNTER 2020-12-17 13:02 | Inpatient (IN) | payer OTHER, SELFPAY ==
[2020-10-14 00:57] VITALS: BMI 38.3
[2020-12-17] VITALS (17 sets, daily range): BP systolic 135–172; BP diastolic 89–115; PULSE 84–107; RESP 16–18; TEMP 36.5–36.7; O2SAT 93–99; BMI 37.8
--- NOTE | 2020-12-17 13:32 | ED_ITS ---
HPI - Abdominal Pain General Chief Complaint: Back Pain/Injury Stated Complaint: RIGHT SIDE PAIN Time Seen by Provider: 12/17/20 13:29 History of Present Illness HPI narrative: 30F former smoker with a history of pyelonephritis, kidney stones and HTN presents with severe right flank pain. She states that she had recently been admitted at an outside facility for about 5 days and had a very thorough evaluation including ultrasounds, cat scans, lab work without any definitive diagnosis. She was even treated for the possibility of early shingles with antivirals. We are awaiting records but it is unclear the patient received any antibiotics. She presents here today with severe right flank pain, stating it is worse than when she was in the hospital. She is very frustrated and tearful. Her pain is worse when she moves and improves with rest. She has had multiple episodes of nausea and vomiting as had a hard time keeping food down. Related Data Home Medications Medication Instructions Recorded Confirmed escitalopram oxalate 20 mg tablet 20 mg PO DAILY 10/14/20 12/17/20 losartan 100 mg tablet 100 mg PO DAILY 10/14/20 12/17/20 metoprolol succinate 50 mg 50 mg PO DAILY 10/14/20 12/17/20 tablet,extended release 24 hr acetaminophen 325 mg tablet 650 mg PO Q6H PRN 12/17/20 12/17/20 acyclovir 800 mg tablet 800 mg PO 5XD 12/17/20 12/17/20 gabapentin 300 mg capsule 300 mg PO TID 12/17/20 12/17/20 lidocaine 5 % topical patch 1 patch TOPICAL DAILY 12/17/20 12/17/20 (Lidoderm) ondansetron 4 mg disintegrating 4 mg PO Q8H PRN 12/17/20 12/17/20 tablet Allergies Allergy/AdvReac Type Severity Reaction Status Date / Time No Known Drug Allergies Allergy Verified 12/18/20 13:45 Review of Systems Review of Systems Narrative: GENERAL: See HPI. HEENT: Denies sinus pain, ear pain, sore throat, difficulty swallowing, dizziness. RESPIRATORY: Denies dyspnea, cough, wheezing, hemoptysis, sputum. CARDIOVASCULAR: Denies chest pain, palpitations, orthopnea, edema, GASTROINTESTINAL: See HPI : See HPI. MUSCULOSKELETAL: denies weakness, joint pain, or bony pain SKIN: Denies rash, skin lesions, or other NEUROLOGIC: Denies weakness, headache, numbness, change in speech, confusion, seizures, incoordination. PSYCHIATRIC: No concerning psychosocial issues. 12 point review of systems is negative except for those stated above Patient History Medical History Depression with anxiety Hypertension Medullary sponge kidney Right renal stone Surgical History History of lithotripsy History of nephrostomy History of renal stent Family History Father Hypertension Stroke Mother Cancer Social History household members: spouse and children Smoking Status: Former smoker alcohol intake: former Smoking Status: Former smoker Substance Use Type: does not use Exam Narrative Exam Narrative: GENERAL: [30] year old patient appears stated age. Well- developed patient, in mild distress. Tearful, upset, holding an emesis bag HEAD: Atraumatic. Normocephalic. EYES: Pupils equal round and reactive. Extraocular motions intact. No scleral icterus. No injection or drainage. ENT: Nose without bleeding, purulent drainage. Throat without erythema, tonsillar hypertrophy or exudate. Airway patent. NECK: Trachea midline. Non tender CARDIOVASCULAR: Regular rate and rhythm without murmurs, gallops, or rubs. RESPIRATORY: Clear to auscultation. Breath sounds equal bilaterally. No wheezes, rales, or rhonchi. GASTROINTESTINAL: Abdomen soft, significant tenderness to palpation in the right flank EXTREMITIES: No edema or joint tenderness. BACK: Nontender without deformity or crepitance. No flank tenderness. NEURO: AOx3. SKIN: No rash or erythema of visible areas Initial Vital Signs Initial Vital Signs: Vital Signs Temperature 98.1 F 12/17/20 13:10 Pulse Rate 96 H 12/17/20 13:10 Respiratory Rate 18 12/17/20 13:10 Blood Pressure 166/110 H 12/17/20 13:10 Pulse Oximetry 98 12/17/20 13:10 Course Orders Ordered: Acetaminophen (Acetaminophen 325 Mg Tablet) 975 mg PO Q8H [facility] Last Admin: 12/19/20 12:18 Dose: 975 mg Documented by: GARY Docusate Sodium (Docusate 100 Mg Capsule) 100 mg PO BID [facility] Last Admin: 12/19/20 09:18 Dose: 100 mg Documented by: Admin: 12/18/20 22:45 Dose: 100 mg Documented by: Admin: 12/18/20 09:17 Dose: 100 mg Documented by: Admin: 12/17/20 21:37 Dose: 100 mg Documented by: WALT Enoxaparin Sodium (Enoxaparin 40 Mg/0.4 Ml Syringe) 40 mg SUBCUT DAILY [facility] Last Admin: 12/19/20 09:18 Dose: 40 mg Documented by: Admin: 12/18/20 09:17 Dose: 40 mg Documented by: JAQUI Escitalopram Oxalate (Escitalopram 10 Mg Tablet) 20 mg PO DAILY [facility] Last Admin: 12/19/20 09:18 Dose: 20 mg Documented by: Admin: 12/18/20 09:52 Dose: 20 mg Documented by: JAQUI Gabapentin (Gabapentin 300 Mg Capsule) 300 mg PO TID [facility] Last Admin: 12/19/20 14:03 Dose: 300 mg Documented by: Admin: 12/19/20 09:19 Dose: 300 mg Documented by: Admin: 12/18/20 22:45 Dose: 300 mg Documented by: Admin: 12/18/20 14:34 Dose: 300 mg Documented by: JAQUI Hydromorphone HCl (Hydromorphone 4 Mg Tablet) 4 mg PO Q4HR PRN PRN Reason: Pain, Severe (7-10) Last Admin: 12/19/20 12:15 Dose: 4 mg Documented by: Admin: 12/18/20 14:34 Dose: 4 mg Documented by: Admin: 12/18/20 09:48 Dose: 4 mg Documented by: JAQUI Ceftriaxone Sodium 1,000 mg/ (Sodium Chloride) 100 mls @ 200 mls/hr IV Q24H [facility] Stop: 12/27/20 19:14 Last Infusion: 12/18/20 20:10 Dose: 0 mls/hr Documented by: Admin: 12/18/20 19:33 Dose: 200 mls/hr Documented by: Infusion: 12/17/20 21:20 Dose: 0 mls/hr Documented by: Admin: 12/17/20 20:13 Dose: 200 mls/hr Documented by: JBREAZ Ketorolac Tromethamine (Ketorolac 10 Mg Tablet) 10 mg PO Q6HR PRN PRN Reason: Pain, Moderate (4-6) Stop: 12/22/20 18:48 Last Admin: 12/19/20 09:20 Dose: 10 mg Documented by: Admin: 12/18/20 19:47 Dose: 10 mg Documented by: Admin: 12/18/20 11:12 Dose: 10 mg Documented by: Admin: 12/18/20 05:11 Dose: 10 mg Documented by: CORI Lidocaine (Lidocaine Patch 1 Each Adh..Patch) 1 each TOP DAILY [facility] Last Admin: 12/19/20 12:18 Dose: Not Given Documented by: GARY Lidocaine (Remove Lidocaine Patch) 1 each TOP BEDTIME [facility] Lorazepam (Lorazepam 1 Mg Tablet) 2 mg PO Q4H [facility] Last Admin: 12/19/20 12:19 Dose: 2 mg Documented by: Admin: 12/19/20 09:17 Dose: 2 mg Documented by: Admin: 12/19/20 03:50 Dose: Not Given Documented by: Admin: 12/19/20 00:07 Dose: Not Given Documented by: Admin: 12/18/20 19:22 Dose: 2 mg Documented by: Admin: 12/18/20 16:12 Dose: 2 mg Documented by: Admin: 12/18/20 12:08 Dose: 2 mg Documented by: JAQUI Losartan Potassium (Losartan 25 Mg Tablet) 25 mg PO DAILY [facility] Last Admin: 12/19/20 09:18 Dose: 25 mg Documented by: GARY Magnesium Hydroxide (Magnesium Hydroxide 30 Ml Udc) 30 ml PO DAILY PRN PRN Reason: Constipation Metoprolol Succinate (Metoprolol Er 50 Mg Tablet) 50 mg PO DAILY [facility] Last Admin: 12/19/20 09:19 Dose: 50 mg Documented by: Admin: 12/18/20 09:51 Dose: 50 mg Documented by: JAQUI Naloxone HCl (Naloxone 0.4 Mg/Ml Vial) 0.2 mg IV Q2MIN PRN PRN Reason: Opiate Reversal Ondansetron HCl (Ondansetron 4 Mg/2 Ml Inj) 4 mg IV Q8HR PRN PRN Reason: Nausea And Vomiting Polyethylene Glycol (Polyethylene Glycol 3350 17 Gm Powd.Pack) 17 gm PO DAILY PRN PRN Reason: constipation Last Admin: 12/18/20 12:08 Dose: 17 gm Documented by: JAQUI Sennosides (Sennosides 8.6 Mg Tablet) 17.2 mg PO BEDTIME [facility] Last Admin: 12/18/20 22:45 Dose: 17.2 mg Documented by: Admin: 12/17/20 21:37 Dose: 17.2 mg Documented by: WALT Sodium Chloride (Sodium Chloride 0.9% Flush) 10 ml IV BID [facility] Last Admin: 12/19/20 09:20 Dose: 10 ml Documented by: GARY Sodium Chloride (Sodium Chloride 0.9% Flush) 10 ml IV PRN PRN PRN Reason: Flush Discontinued Medications Acetaminophen (Acetaminophen 325 Mg Tablet) 650 mg PO Q6HR PRN PRN Reason: Fever/Mild Pain (1-3) Hydromorphone HCl (Hydromorphone 1 Mg Inj) 1 mg IV NOW ONE Stop: 12/17/20 15:33 Last Admin: 12/17/20 15:36 Dose: 1 mg Documented by: TERI Hydromorphone HCl (Hydromorphone 1 Mg Inj) 1 mg IV NOW ONE Stop: 12/17/20 17:35 Last Admin: 12/17/20 17:43 Dose: 1 mg Documented by: TERI Hydromorphone HCl (Hydromorphone 1 Mg Inj) 1 mg IV Q4H PRN PRN Reason: Pain, Moderate (4-6) Last Admin: 12/18/20 16:49 Dose: 1 mg Documented by: Admin: 12/18/20 09:17 Dose: 1 mg Documented by: Admin: 12/17/20 21:37 Dose: 1 mg Documented by: WALT Hydromorphone HCl (Hydromorphone 2 Mg Inj) 2 mg IV Q3H PRN PRN Reason: Pain, Severe (7-10) Last Admin: 12/18/20 06:00 Dose: 2 mg Documented by: Admin: 12/18/20 02:54 Dose: 2 mg Documented by: Admin: 12/18/20 00:23 Dose: 2 mg Documented by: CORI Hydromorphone HCl (Hydromorphone 2 Mg Inj) 1 mg IV Q3H PRN PRN Reason: Pain, Severe (7-10) Last Admin: 12/18/20 23:37 Dose: 1 mg Documented by: Admin: 12/18/20 19:23 Dose: 1 mg Documented by: WALT Hydromorphone HCl (Hydromorphone 1 Mg Inj) 1 mg IV Q3H PRN PRN Reason: Pain, Severe (7-10) Sodium Chloride (Normal Saline 0.9%) 1,000 mls @ 1,000 mls/hr IV BOLUS ONE Stop: 12/17/20 15:21 Last Infusion: 12/17/20 18:24 Dose: 0 mls/hr Documented by: Admin: 12/17/20 14:45 Dose: 1,000 mls/hr Documented by: TERI Levofloxacin (Levaquin) 500 mg in 100 mls @ 100 mls/hr IV NOW ONE Stop: 12/17/20 18:34 Last Infusion: 12/17/20 18:35 Dose: 0 mls/hr Documented by: Infusion: 12/17/20 18:24 Dose: 100 mls/hr Documented by: Admin: 12/17/20 17:42 Dose: 100 mls/hr Documented by: TERI Ketorolac Tromethamine (Ketorolac 30 Mg/Ml Vial) 15 mg IV NOW ONE Stop: 12/17/20 16:47 Last Admin: 12/17/20 16:54 Dose: 15 mg Documented by: TERI Ondansetron HCl (Ondansetron 4 Mg/2 Ml Inj) 4 mg IV NOW ONE Stop: 12/17/20 17:35 Last Admin: 12/17/20 17:42 Dose: 4 mg Documented by: TERI Oxycodone HCl (Oxycodone Ir 10 Mg Tablet) 10 mg PO Q6HR PRN PRN Reason: Pain, Severe (7-10) Last Admin: 12/17/20 20:19 Dose: 10 mg Documented by: JOHN Consultations Consultation #1: Discussion with on-call Urology. They have reviewed the patient's history and images, given lack of obvious obstructive uropathy there is currently no indication for intervention and they recommend pain control, fluids antibiotics and admission to the hospitalist. Consultation #2: Discussed with hospitalist, need for admission due to intractable pain requiring multiple doses of pain meds, vomiting, worsening symptoms and recent admission. Vital Signs Vital signs: Vital Signs - 8 hr 12/17/20 13:10 12/17/20 13:24 12/17/20 13:26 Temperature 98.1 F Pulse Rate 96 H 90 Respiratory Rate 18 Blood Pressure 166/110 H 166/110 H Pulse Oximetry 98 95 12/17/20 13:30 12/17/20 14:00 12/17/20 14:43 Temperature Pulse Rate 90 91 H 95 H Respiratory Rate Blood Pressure 141/97 H 156/95 H 172/96 H Pulse Oximetry 94 95 97 12/17/20 15:00 12/17/20 15:30 12/17/20 16:30 Temperature Pulse Rate 87 84 104 H Respiratory Rate Blood Pressure 158/98 H 162/101 H Pulse Oximetry 93 95 93 12/17/20 17:30 12/17/20 17:55 Temperature Pulse Rate 107 H 107 H Respiratory Rate Blood Pressure 163/98 H Pulse Oximetry 97 94 MDM - Abdominal Pain Lab Data Result diagrams: 12/19/20 05:50 12/19/20 05:50 Labs: Lab Results 12/17/20 12/17/20 12/17/20 Range/Units 13:06 14:35 14:35 WBC 8.4 (4.5-11.0) X10^3/uL RBC 4.56 (4.0-5.2) X10^6/uL Hgb 13.2 (12.0-16.0) g/dL Hct 39.6 (36-46) % MCV 87.0 (80-100) fL MCH 29.0 (26-34) PG MCHC 33.4 (30-36) % RDW 13.0 (11.6-14.8) % Plt Count 299 (150-400) X10^3/uL Neut % (Auto) 67.6 (50-75) % Lymph % (Auto) 22.6 L (25-40) % Rooks % (Auto) 5.7 (3-14) % Eos % (Auto) 3.5 (2-4) % Baso % (Auto) 0.6 (0-2) % Neut # (Auto) 5700 (9889-6981) /uL Lymph # (Auto) 1900 (8625-2180) /uL Rooks # (Auto) 500 (0-900) /uL Eos # (Auto) 300 (0-450) /uL Baso # (Auto) 100 (0-100) /uL D-Dimer (<230) ng/mL Sodium 139 (137-145) mmol/L Potassium 3.6 (3.4-5.1) mmol/L Chloride 104 (98-107) mmol/L Carbon Dioxide 30 (22-32) mmol/L BUN 6 L (7-17) mg/dL Creatinine 0.58 (0.52-1.04) mg/dL Estimated GFR > 60.0 (>60) mL/min BUN/Creatinine Ratio 10.3 (6-22) Glucose 87 (70-100) mg/dL Calcium 9.5 (8.4-10.2) mg/dL Total Bilirubin 0.4 (0.2-1.3) mg/dL AST 21 (14-36) IU/L ALT 11 (<35) IU/L Alkaline Phosphatase 88 (38-126) U/L Total Protein 7.5 (6.3-8.2) g/dL Albumin 3.9 (3.5-5.0) g/dL Globulin 3.6 (1.7-4.1) g/dL Albumin/Globulin Ratio 1.1 (1.0-2.8) Urine RBC 0-1/hpf (0-5/HPF) Urine WBC 1-5/hpf (0-5/HPF) Ur Squamous Epith Cells 1-5 /hpf (0-5/HPF) Calcium Oxalate Crystal Moderate H Uric Acid Crystals Few H (None) Urine Bacteria None seen (None) Ur Culture Indicated? Cult not indicated SARS-CoV-2 (PCR) (Negative) 12/17/20 12/17/20 Range/Units 14:40 17:00 WBC (4.5-11.0) X10^3/uL RBC (4.0-5.2) X10^6/uL Hgb (12.0-16.0) g/dL Hct (36-46) % MCV (80-100) fL MCH (26-34) PG MCHC (30-36) % RDW (11.6-14.8) % Plt Count (150-400) X10^3/uL Neut % (Auto) (50-75) % Lymph % (Auto) (25-40) % Rooks % (Auto) (3-14) % Eos % (Auto) (2-4) % Baso % (Auto) (0-2) % Neut # (Auto) (6912-4775) /uL Lymph # (Auto) (8108-7031) /uL Rooks # (Auto) (0-900) /uL Eos # (Auto) (0-450) /uL Baso # (Auto) (0-100) /uL D-Dimer 578 H (<230) ng/mL Sodium (137-145) mmol/L Potassium (3.4-5.1) mmol/L Chloride (98-107) mmol/L Carbon Dioxide (22-32) mmol/L BUN (7-17) mg/dL Creatinine (0.52-1.04) mg/dL Estimated GFR (>60) mL/min BUN/Creatinine Ratio (6-22) Glucose (70-100) mg/dL Calcium (8.4-10.2) mg/dL Total Bilirubin (0.2-1.3) mg/dL AST (14-36) IU/L ALT (<35) IU/L Alkaline Phosphatase (38-126) U/L Total Protein (6.3-8.2) g/dL Albumin (3.5-5.0) g/dL Globulin (1.7-4.1) g/dL Albumin/Globulin Ratio (1.0-2.8) Urine RBC (0-5/HPF) Urine WBC (0-5/HPF) Ur Squamous Epith Cells (0-5/HPF) Calcium Oxalate Crystal Uric Acid Crystals (None) Urine Bacteria (None) Ur Culture Indicated? SARS-CoV-2 (PCR) Negative (Negative) Point of care testing: Point of Care Testing Test Results Negative Urine Dip Bedside Urine Glucose Negative Bedside Urine Bilirubin - Negative Bedside Urine Ketone - Negative Urine Specific [place] 1.025 Bedside Urine Occult Blood +++ Bedside Urine pH 6.0 Bedside Urine Protein - Negative Bedside Urine Urobilinogen - Negative Bedside Urine Nitrite - Negative Bedside Urine Leukocytes - Negative Esterase Imaging Data CT scan - abdomen/pelvis: Radiologist's Impression: Chart Viewer Diagnostics DATE TYPE STATUS REF RANGE/AUTHOR Hx Today 15:13 Robert Nelson 10/16/20 11:30 Amor Nuñez 10/13/20 23:22 10/13/20 21:43 Kathrin Watson 10/04/20 20:37 Deepak Ojeda 30, F0 1990 ADM [place], [facility] 154.94cm 90.718kg BMI: 37.8kg/m? Search Chart No Data to Display ONSET Today 18:25 Diandra Whitlock 30 F [address] [id number] Scan ReportSigned Patient: Diandra Whitlock AMR#: [id number]: 1990Acct:[id number]/Sex: 30 / FDate of Service: 12/17/20Loc: EDAccession Number: [id number] Procedure: CT chest abd pel w con Ordering Provider: Ko Bates D.O. PROCEDURE: CT CHEST ABD PEL W CON INDICATIONS: severe R lateral rib and upper abdomen pain TECHNIQUE: After the administration of intravenous contrast, axial sections acquired from the supraclavicular neck to the pubic symphysis. Coronal and sagittal reformats were performed. For radiation dose reduction, the following was used: automated exposure control, adjustment of mA and/or kV according to patient size. COMPARISON: [facility], CT, CT ABDOMEN PELVIS WITH CONTRAST, 12/14/2020, 1:37. [facility], CT, CT ANGIO CHEST PE, 12/14/2020, 3:19. [facility], CT, CT ABDOMEN PELVIS WO CON, 10/04/2020, 21:01. [facility], US, US ABDOMEN LIMITED, 12/16/2020, 21:24. [facility], CR, XR RIBS RIGHT, , 20:22. FINDINGS: Image quality: Excellent. CHEST: Lower Neck: No enlarged lymph nodes. Thyroid: Within normal limits. Axillae: No enlarged lymph nodes. Chest Wall: Scrutiny is given to the right lateral ribs. No rib fractures or other focal rib abnormality can be seen. Lungs and Airways: Mild dependent atelectasis can be seen. No suspicious nodules are detected. Pleura: No pneumothorax is seen. There is a small right-sided pleural effusion. Heart: Heart size is normal. No pericardial effusion. Thoracic Vessels: The aorta and pulmonary arteries demonstrate normal size. Mediastinum and Keisha: No enlarged lymph nodes. Esophagus: No wall thickening. No hiatal hernia. ABDOMEN: Liver: Unremarkable. Gallbladder: Unremarkable. Biliary ducts: Unremarkable. Pancreas: Unremarkable. Spleen: Unremarkable. Adrenal Glands: Unremarkable. Kidneys and Ureters: Minimal right kidney perinephric fat stranding can be seen. Mild areas of slightly decreased enhancement can be seen involving the right kidney. There is moderate right-sided hydroureter and hydronephrosis, which is new compared to the prior examination. Several nonobstructing right-sided kidney stones are seen, which measure up to 2 mm. Areas of mild cortical irregularity can be seen involving the right kidney. There is no ureteral stone seen. No left-sided hydronephrosis is seen. The left kidney enhances normally. Stomach and Bowel: Stomach, small bowel loops, and colon are unremarkable. Peritoneum: No abnormal intraperitoneal fluid. No free air. Ventral Wall: A mild periumbilical hernia is seen, containing fat. Abdominal Nodes: No retroperitoneal or mesenteric adenopathy by size criteria. Vessels: Aorta and inferior vena cava are normal in size. PELVIS: Pelvic Organs: The uterus appears normal for age. No adnexal masses are seen. Bladder: Unremarkable. Pelvic Nodes: No enlarged lymph nodes. Miscellaneous: No inguinal hernias are seen. Bones: Unremarkable. IMPRESSION: These imaging findings are most consistent with right kidney pyelonephritis, with new right-sided hydroureter and hydronephrosis, yet without an obstructing stone. There is minimal perinephric fat stranding seen on the right, with small areas decreased enhancement within the right kidney. No abscess can be seen. Several nonobstructing right-sided kidney stones are seen. Cortical irregularity can be seen involving the right kidney, which may reflect prior episodes of infarction or infection. A small right-sided pleural effusion can be seen. No rib abnormalities are seen. Incidental note is made of: Fat containing periumbilical hernia Dictated by: Robert Nelson M.D. on 12/17/2020 at 15:05 Approved by: Robert Nelson M.D. on 12/17/2020 at 15:15 Discharge Plan Departure Patient Disposition: Admitted as Observation Clinical Impression: Pyelonephritis, Intractable abdominal pain Admit Date/Time: 12/17/20 18:15 Admit Provider: Jimbo Barajas
--- NOTE | 2020-12-17 13:42 | PC.NURSE ---
Reports right rib pain that radiates to back. No BM since Saturday.
[2020-12-17 14:45] LABS: Add Manual Diff / Slide Review NO; Basophils Absolute Auto 100 /uL (0-100); Basophils Percent Auto 0.6 % (0-2); Eosinophils Absolute Auto 300 /uL (0-450); Eosinophils Percent Auto 3.5 % (2-4); Hematocrit 39.6 % (36-46); Hemoglobin 13.2 g/dL (12.0-16.0); Lymphocytes Absolute Auto 1900 /uL (1100-4500); Lymphocytes Percent Auto 22.6 % (25-40); Mean Corpuscular HGB Conc 33.4 % (30-36); Monocytes Absolute Auto 500 /uL (0-900); Monocytes Percent Auto 5.7 % (3-14); Neutrophils Absolute Auto 5700 /uL (1500-7000); Neutrophils Percent Auto 67.6 % (50-75); Platelet Count 299 X10^3/uL (150-400); Red Blood Cell Count 4.56 X10^6/uL (4.0-5.2); White Blood Cell Count 8.4 X10^3/uL (4.5-11.0)
[2020-12-17] MEDS: SODIUM CHLORIDE 0.9% 1,000 ML 1000 ML IV (14:45)
[2020-12-17 14:57] LABS: Alanine Aminotransferase 11 IU/L (<35); Albumin 3.9 g/dL (3.5-5.0); Albumin Globulin Ratio 1.1 (1.0-2.8); Alkaline Phosphatase 88 U/L (38-126); Aspartate Aminotransferase 21 IU/L (14-36); BUN Creatinine Ratio 10.3 (6-22); Bilirubin Total 0.4 mg/dL (0.2-1.3); Blood Urea Nitrogen 6 mg/dL (7-17); Calcium 9.5 mg/dL (8.4-10.2); Carbon Dioxide 30 mmol/L (22-32); Chloride 104 mmol/L (98-107); Estimated Glomerular Filt Rate > 60.0 mL/min (>60); Globulin 3.6 g/dL (1.7-4.1); Glucose 87 mg/dL (70-100); HEMOLYSIS < 15 (0-50); Potassium 3.6 mmol/L (3.4-5.1); Sodium 139 mmol/L (137-145); Total Protein 7.5 g/dL (6.3-8.2)
[2020-12-17 15:03] LABS: D Dimer 578 ng/mL (<230)
--- NOTE | 2020-12-17 15:13 | DI.CT.S_ITS ---
PROCEDURE: CT CHEST ABD PEL W CON INDICATIONS: severe R lateral rib and upper abdomen pain TECHNIQUE: After the administration of intravenous contrast, axial sections acquired from the supraclavicular neck to the pubic symphysis. Coronal and sagittal reformats were performed. For radiation dose reduction, the following was used: automated exposure control, adjustment of mA and/or kV according to patient size. COMPARISON: [facility], CT, CT ABDOMEN PELVIS WITH CONTRAST, 12/14/2020, 1:37. [facility], CT, CT ANGIO CHEST PE, 12/14/2020, 3:19. [facility], CT, CT ABDOMEN PELVIS WO CON, 10/04/2020, 21:01. [facility], US, US ABDOMEN LIMITED, 12/16/2020, 21:24. [facility], CR, XR RIBS RIGHT, 12/16/2020, 20:22. FINDINGS: Image quality: Excellent. CHEST: Lower Neck: No enlarged lymph nodes. Thyroid: Within normal limits. Axillae: No enlarged lymph nodes. Chest Wall: Scrutiny is given to the right lateral ribs. No rib fractures or other focal rib abnormality can be seen. Lungs and Airways: Mild dependent atelectasis can be seen. No suspicious nodules are detected. Pleura: No pneumothorax is seen. There is a small right-sided pleural effusion. Heart: Heart size is normal. No pericardial effusion. Thoracic Vessels: The aorta and pulmonary arteries demonstrate normal size. Mediastinum and Keisha: No enlarged lymph nodes. Esophagus: No wall thickening. No hiatal hernia. ABDOMEN: Liver: Unremarkable. Gallbladder: Unremarkable. Biliary ducts: Unremarkable. Pancreas: Unremarkable. Spleen: Unremarkable. Adrenal Glands: Unremarkable. Kidneys and Ureters: Minimal right kidney perinephric fat stranding can be seen. Mild areas of slightly decreased enhancement can be seen involving the right kidney. There is moderate right-sided hydroureter and hydronephrosis, which is new compared to the prior examination. Several nonobstructing right-sided kidney stones are seen, which measure up to 2 mm. Areas of mild cortical irregularity can be seen involving the right kidney. There is no ureteral stone seen. No left-sided hydronephrosis is seen. The left kidney enhances normally. Stomach and Bowel: Stomach, small bowel loops, and colon are unremarkable. Peritoneum: No abnormal intraperitoneal fluid. No free air. Ventral Wall: A mild periumbilical hernia is seen, containing fat. Abdominal Nodes: No retroperitoneal or mesenteric adenopathy by size criteria. Vessels: Aorta and inferior vena cava are normal in size. PELVIS: Pelvic Organs: The uterus appears normal for age. No adnexal masses are seen. Bladder: Unremarkable. Pelvic Nodes: No enlarged lymph nodes. Miscellaneous: No inguinal hernias are seen. Bones: Unremarkable. IMPRESSION: These imaging findings are most consistent with right kidney pyelonephritis, with new right-sided hydroureter and hydronephrosis, yet without an obstructing stone. There is minimal perinephric fat stranding seen on the right, with small areas decreased enhancement within the right kidney. No abscess can be seen. Several nonobstructing right-sided kidney stones are seen. Cortical irregularity can be seen involving the right kidney, which may reflect prior episodes of infarction or infection. A small right-sided pleural effusion can be seen. No rib abnormalities are seen. Incidental note is made of: Fat containing periumbilical hernia Dictated by: Robert Nelson M.D. on 12/17/2020 at 15:05 Approved by: Robert Nelson M.D. on 12/17/2020 at 15:15
[2020-12-17] MEDS: HYDROMORPHONE 1 MG INJ IV ×3 (15:36→21:37)
[2020-12-17] MEDS: KETOROLAC 30 MG/ML VIAL 15 MG IV (16:54)
[2020-12-17 17:14] LABS: Bacteria Urine None Seen
[2020-12-17 17:36] LABS: Calcium Oxalate Crystals Urine Moderate; Culture Indicated Urine Cult Not Indicated; RBC Urine 0-1/HPF (0-5/HPF); Squamous Epithelial Cell Urine 1-5 /HPF (0-5/HPF); Uric Acid Crystals Urine Few; WBC Urine 1-5/HPF (0-5/HPF)
[2020-12-17] MEDS: ONDANSETRON 4 MG/2 ML INJ IV (17:42)
[2020-12-17] MEDS: levoFLOXacin 500 MG/100 ML PIGGYBACK 100 MG IV (17:42)
[2020-12-17 17:49] LABS: COVID19 - ADMIT (NP swab/PCR) Negative (Negative)
--- NOTE | 2020-12-17 18:44 | P.HP_ITS ---
History of Present Illness History of Present Illness Date Patient Seen: 12/17/20 Time Patient Seen: 18:44 Chief complaint: RIGHT SIDE PAIN Narrative: This is a 30-year-old female with a past medical history of hypertension and prior nephrolithiasis (requiring multiple ureteral stents and nephrostomy tubes, none currently in place) who was recently admitted in October of this year with right-sided pyelonephritis who presented to the emergency room today with continuing right-sided back pain. This pain she states is more severe (8-9/10) than her prior episodes, and it hurts when she takes a breath in in her ribs on that side. There is no radiation into the groin. The pain is sharp. She has been dealing with this pain for the past 5 days. She was admitted to [facility] from December 13 until today when she was released. She states that she was still feeling ill, but was discharged anyway. Review of records show the initial imaging found no acute abnormalities and she was treated with an antiviral for possible shingles though no rash was noted. She denies any fevers or chills, lower abdominal pain, dysuria, or urinary frequency. Denies rash except for some redness on her right buttocks which she equates to prolonged sitting in the hospital. In the emergency room, initial laboratory findings were unremarkable. Urinalysis did show positive nitrites, 1-5 WBC but 1-5 squamous epithelial cells. There also calcium oxalate crystals and uric acid crystals. Specimen was not reflex for culture but the patient's CT imaging did show right-sided pyelonephritis with hydronephrosis but no obstructing stone. Urology was consulted but said that there were no acute interventions. Patient History Medical History Depression with anxiety Hypertension Medullary sponge kidney Right renal stone Surgical History History of lithotripsy History of nephrostomy History of renal stent Family & Social History Family History Father Hypertension Stroke Mother Cancer Social History: household members spouse,children Safety & Behavioral: Feels Safe in Current Yes Environment Been Physically Hurt or No Threatened By a Person Tobacco & Substance use: Tobacco type cigarettes Smoking Status Former smoker alcohol intake former Substance Use Type does not use Meds Home Medications and Allergies Home Medications Medication Instructions Recorded Confirmed Type escitalopram oxalate 20 mg tablet 20 mg PO DAILY 10/14/20 12/17/20 History losartan 100 mg tablet 100 mg PO DAILY 10/14/20 12/17/20 History metoprolol succinate 50 mg 50 mg PO DAILY 10/14/20 12/17/20 History tablet,extended release 24 hr acetaminophen 325 mg tablet 650 mg PO Q6H PRN 12/17/20 12/17/20 History acyclovir 800 mg tablet 800 mg PO 5XD 12/17/20 12/17/20 History gabapentin 300 mg capsule 300 mg PO TID 12/17/20 12/17/20 History lidocaine 5 % topical patch 1 patch TOPICAL DAILY 12/17/20 12/17/20 History (Lidoderm) ondansetron 4 mg disintegrating 4 mg PO Q8H PRN 12/17/20 12/17/20 History tablet Allergies Allergy/AdvReac Type Severity Reaction Status Date / Time Penicillins Allergy Verified 10/04/20 19:46 Review of Systems Review of Systems Narrative: All other systems reviewed with the patient and are negative unless otherwise stated. Exam Vital Signs (past 8 hours): - 12/17/20 13:10 12/17/20 13:24 12/17/20 13:26 Temperature 98.1 F Pulse Rate 96 H 90 Respiratory Rate 18 Blood Pressure 166/110 H 166/110 H Pulse Oximetry 98 95 12/17/20 13:30 12/17/20 14:00 12/17/20 14:43 Temperature Pulse Rate 90 91 H 95 H Respiratory Rate Blood Pressure 141/97 H 156/95 H 172/96 H Pulse Oximetry 94 95 97 12/17/20 15:00 12/17/20 15:30 12/17/20 16:30 Temperature Pulse Rate 87 84 104 H Respiratory Rate Blood Pressure 158/98 H 162/101 H Pulse Oximetry 93 95 93 12/17/20 17:30 12/17/20 17:55 12/17/20 18:25 Temperature Pulse Rate 107 H 107 H 97 H Respiratory Rate Blood Pressure 163/98 H 145/89 H Pulse Oximetry 97 94 99 Oxygen Delivery Method Room Air Narrative Exam Narrative: GENERAL APPEARANCE: Well developed, well nourished, obese female BMI 37.8 in no acute distress SKIN: Inspection of the skin reveals no rashes, ulcerations or petechiae. HEENT: Normocephalic atraumatic, extraocular muscles are intact, oropharynx is clear and mucous membranes are moist, neck is supple without adenopathy NECK: Supple and symmetric. There was no thyroid enlargement, and no tenderness, or masses were felt. CHEST: Normal AP diameter and normal contour without any kyphoscoliosis. LUNGS: Auscultation of the lungs revealed no wheezes, rhonchi, or rales. CARDIOVASCULAR: There was a regular rate and rhythm without any murmurs, gallops, rubs. Peripheral pulses were 2+ and symmetric. ABDOMEN: Soft, tender near RUQ, more tenderness on R back diffusely to chest wall. MUSCULOSKELETAL: There was no tenderness or effusions noted. Muscle strength and tone were normal. EXTREMITIES: No cyanosis, clubbing or edema. NEUROLOGIC: Alert and oriented x 3. Normal affect. Strength is +5/5 in the Upper Extremities and Lower Extremities Bilaterally. Sensation to touch was normal. Objective Imaging CT scan - abdomen: Radiologist's impression: These imaging findings are most consistent with right kidney pyelonephritis, with new right-sided hydroureter and hydronephrosis, yet without an obstructing stone. There is minimal perinephric fat stranding seen on the right, with small areas decreased enhancement within the right kidney. No abscess can be seen. Several nonobstructing right-sided kidney stones are seen. Cortical irregularity can be seen involving the right kidney, which may reflect prior episodes of infarction or infection. A small right-sided pleural effusion can be seen. No rib abnormalities are seen. Incidental note is made of: Fat containing periumbilical hernia Labs Result Diagrams: 12/17/20 14:35 12/17/20 14:35 Labs: Laboratory Results - last 24 hr 12/17/20 12/17/20 12/17/20 13:06 14:35 14:35 WBC 8.4 RBC 4.56 Hgb 13.2 Hct 39.6 MCV 87.0 MCH 29.0 MCHC 33.4 RDW 13.0 Plt Count 299 Neut % (Auto) 67.6 Lymph % (Auto) 22.6 L [place] % (Auto) 5.7 Eos % (Auto) 3.5 Baso % (Auto) 0.6 Neut # (Auto) 5700 Lymph # (Auto) 1900 [place] # (Auto) 500 Eos # (Auto) 300 Baso # (Auto) 100 D-Dimer Sodium 139 Potassium 3.6 Chloride 104 Carbon Dioxide 30 BUN 6 L Creatinine 0.58 Estimated GFR > 60.0 BUN/Creatinine Ratio 10.3 Glucose 87 Calcium 9.5 Total Bilirubin 0.4 AST 21 ALT 11 Alkaline Phosphatase 88 Total Protein 7.5 Albumin 3.9 Globulin 3.6 Albumin/Globulin Ratio 1.1 Urine RBC 0-1/hpf Urine WBC 1-5/hpf Ur Squamous Epith Cells 1-5 /hpf Calcium Oxalate Crystal Moderate H Uric Acid Crystals Few H Urine Bacteria None seen Ur Culture Indicated? Cult not indicated SARS-CoV-2 (PCR) 12/17/20 12/17/20 14:40 17:00 WBC RBC Hgb Hct MCV MCH MCHC RDW Plt Count Neut % (Auto) Lymph % (Auto) [place] % (Auto) Eos % (Auto) Baso % (Auto) Neut # (Auto) Lymph # (Auto) [place] # (Auto) Eos # (Auto) Baso # (Auto) D-Dimer 578 H Sodium Potassium Chloride Carbon Dioxide BUN Creatinine Estimated GFR BUN/Creatinine Ratio Glucose Calcium Total Bilirubin AST ALT Alkaline Phosphatase Total Protein Albumin Globulin Albumin/Globulin Ratio Urine RBC Urine WBC Ur Squamous Epith Cells Calcium Oxalate Crystal Uric Acid Crystals Urine Bacteria Ur Culture Indicated? SARS-CoV-2 (PCR) Negative Assessment & Plan Assessment & Plan narrative: Ms. Whitlock is a 30W admitted for recurrent pyelonpehritis. 1. Pyelonephritis, acute, present on admission, in the setting of hydronephrosis without nonobstructing right renal stone, with history of medullary sponge kidney - no acute obstruction on renal imaging. CT shows R hydronpehrosis however. Consider repeat imaging if patient's symptoms not improving with antitbiotics and supportive measures. - continue ceftriaxone, treat for pyelonephritis. Follow up urine cultures. Does not appear to have received continued antibiotics at outside hospital she recently left, though presume some given in the ER this may effect results. - can have diet, PO pain control with IV dilaudid for breakthrough. 2. Hypertension, chronic - continue home medications. 3. Depression with anxiety, acute on chronic, present on admission -continue patient's Lexapro 4. Obesity as evidence by BMI of 38.3, acute on chronic, present on admission -consideration will be given to dietary counseling Code status: Full code Surrogate decision maker: Armand Whitlock spouse COVID PCR: Negative VTE/DVT prophylaxis: Lovenox 40 mg COVID-19 COVID-19 status: Negative
[2020-12-17] MEDS: cefTRIAXone 1,000 MG in SODIUM CHLORIDE 0.9% 100 ML 200 ML IV (20:13)
[2020-12-17] MEDS: OXYCODONE IR 10 MG TABLET PO (20:19)
[2020-12-17] MEDS: DOCUSATE 100 MG CAPSULE PO (21:37)
[2020-12-17] MEDS: SENNOSIDES 8.6 MG TABLET 17.2 MG PO (21:37)
[2020-12-18] VITALS (14 sets, daily range): BP systolic 110–160; BP diastolic 70–104; PULSE 79–98; RESP 14–20; TEMP 36.2–36.9; O2SAT 92–97
[2020-12-18] MEDS: HYDROMORPHONE 2 MG INJ IV ×3 (00:23→06:00)
[2020-12-18] MEDS: KETOROLAC 10 MG TABLET PO ×3 (05:11→19:47)
--- NOTE | 2020-12-18 08:46 | CM.DANOTE ---
Addendum entered by Betsy Crain LPN 12/18/20 13:10: Met with pt as planned and introduced self and role. Pt says she is waiting to see the doctor, they still have not told me what's wrong with me. Attempted to discuss specifics of her living situation but she did seem somewhat reluctant to provide details (why do you need to know that..) Pt says they did not return to [place] in October as planned as we hadn't gotten around to that. She and her and children have continued to stay in their RV, currently parked at the [employer] in [place]. She said her and other family are caring for the children while she is in the hospital. Asked about specifics of family in area. She says her dad lives in [place] and a couple (we call them our adopted parents) also live in the [place] area. DCP team will be following as POC unfolds. Original Note: Discharge Planning/Care Management DCP: assessment: Case received, EMR reviewed. Note that pt was here October 13 and with a d/c back to with family and plan to return to [place] in a few days. Pt admitted to [facility] Dec 13 and then came to ER as she was still feeling ill. Pt is a 30 year old female who admitted to care of hospitalist team yesterday evening. Payer: Medicaid out of state (lives in [facility]) PCP: established with a PCP in [place] SHRUTI Burroughs did provide pt some options for followup care while she is in [place] (10/18/20: see her note for details) Pt is currently being treated for pyelonephritis. do see RN note of yesterday stating pt has had no BM since P: discuss in Team Rounds and then check in with pt as more is known re POC going forward. CM Discharge Assessment Start: 12/18/20 08:43 Freq: Status: Active Protocol: Document 12/18/20 08:43 ITV (Rec: 12/18/20 08:46 ITV [id number]) Discharge Planning Assessment Advance Directives? No History Provided By Medical Record Prior Living Arrangements RV Comment traveling with her and children 9 and 7. Family in [facility] Household Members spouse,children Type of transportation used prior to Drives own vehicle admit Independent with ADL's Yes Is patient alert and oriented? Yes Transportation Arrangement Family Review Status In Process
--- NOTE | 2020-12-18 09:02 | DI.US.S_ITS ---
PROCEDURE: US RENAL COMPLETE INDICATIONS: WORSENING RIGHT FLANK PAIN. CT FOLLOW UP. TECHNIQUE: Real-time scanning was performed of the kidneys and bladder, with image documentation. COMPARISON: [facility], CT, CT CHEST ABD PEL W CON, 12/17/2020, 15:23. [facility], US, US RENAL COMPLETE, 10/13/2020, 22:11. FINDINGS: Kidneys: Kidneys are normal in size. Right kidney measures 10.9 cm long; left kidney measures 13.1 cm long. Right renal cortical thickness is 1.8 cm; left renal cortical thickness is 2.2 cm. Renal cortical echotexture is normal. No nephrolithiasis. No suspicious solid mass lesions. Several echogenic foci can be seen within the right kidney, with the largest seen involving the anterior mid kidney measuring 4 mm. Mild prominence of the right proximal ureter can be seen, without sia hydronephrosis. Bladder: Pre-void bladder volume is 46 mL. The patient did not void for a postvoid measurement. Pre-void images demonstrate no intraluminal masses or stones. On pre-void images, neither of the ureteral jets are noted with color Doppler interrogation. (Of note, ureteral jets may not be detectable in up to 25% of cases due to insufficient differences in specific gravity between ureteral and bladder urine). Miscellaneous: No free pelvic fluid. IMPRESSION: Mild prominence of the right proximal ureter, without sia hydronephrosis, which appears improved compared to the prior CT. Nonobstructing right-sided kidney stones are seen, which are much better demonstrated by CT. Dictated by: Robert Nelson M.D. on 12/18/2020 at 8:56 Approved by: Robert Nelson M.D. on 12/18/2020 at 8:59
[2020-12-18] MEDS: DOCUSATE 100 MG CAPSULE PO ×2 (09:17→22:45)
[2020-12-18] MEDS: HYDROMORPHONE 1 MG INJ IV ×2 (09:17→16:49)
[2020-12-18] MEDS: ENOXAPARIN 40 MG/0.4 ML SYRINGE SUBCUT (09:17)
[2020-12-18] MEDS: HYDROMORPHONE 4 MG TABLET PO ×2 (09:48→14:34)
[2020-12-18] MEDS: METOPROLOL ER 50 MG TABLET PO (09:51)
[2020-12-18] MEDS: ESCITALOPRAM 10 MG TABLET 20 MG PO (09:52)
--- NOTE | 2020-12-18 11:59 | P.PN_ITS ---
Subjective Subjective Date Patient Seen: 12/18/20 Time Patient Seen: 13:24 Interval history: Still with severe R sided pain, no vomiting but nauseous with all of the pain meds. Asking for opiates around the clock, specifically IV. Improved somewhat this afternoon with addition of PO ativan. Repeat ultrasound showing improvement in her R hydronephrosis, no obstructing stone. No fever. Urine cultures negative thus far. Exam Vital Signs (past 8 hours): - 12/18/20 05:00 12/18/20 06:00 12/18/20 07:29 Temperature 98.0 F 97.1 F L Pulse Rate 87 92 H Respiratory Rate 18 16 Blood Pressure 110/70 132/90 Pulse Oximetry 92 92 93 12/18/20 09:51 12/18/20 11:12 Temperature Pulse Rate Respiratory Rate Blood Pressure 132/90 Pulse Oximetry 94 Oxygen Delivery Method Room Air Oxygen Flow Rate 0 Narrative Exam Narrative: GENERAL APPEARANCE: Well developed, well nourished, obese female BMI 37.8 in no acute distress SKIN: Inspection of the skin reveals no rashes, ulcerations or petechiae. HEENT: Normocephalic atraumatic, extraocular muscles are intact, oropharynx is clear and mucous membranes are moist, neck is supple without adenopathy NECK: Supple and symmetric. There was no thyroid enlargement, and no tenderness, or masses were felt. CHEST: Normal AP diameter and normal contour without any kyphoscoliosis. LUNGS: Auscultation of the lungs revealed no wheezes, rhonchi, or rales. CARDIOVASCULAR: There was a regular rate and rhythm without any murmurs, gallops, rubs. Peripheral pulses were 2+ and symmetric. ABDOMEN: Soft, tender near RUQ, more tenderness on R back diffusely to chest wall. MUSCULOSKELETAL: There was no tenderness or effusions noted. Muscle strength and tone were normal. EXTREMITIES: No cyanosis, clubbing or edema. NEUROLOGIC: Alert and oriented x 3. Normal affect. Strength is +5/5 in the Upper Extremities and Lower Extremities Bilaterally. Sensation to touch was normal. Objective Labs Result Diagrams: 12/17/20 14:35 12/17/20 14:35 Labs: Laboratory Results - last 24 hr 12/17/20 12/17/20 12/17/20 13:06 14:35 14:35 WBC 8.4 RBC 4.56 Hgb 13.2 Hct 39.6 MCV 87.0 MCH 29.0 MCHC 33.4 RDW 13.0 Plt Count 299 Neut % (Auto) 67.6 Lymph % (Auto) 22.6 L [place] % (Auto) 5.7 Eos % (Auto) 3.5 Baso % (Auto) 0.6 Neut # (Auto) 5700 Lymph # (Auto) 1900 [place] # (Auto) 500 Eos # (Auto) 300 Baso # (Auto) 100 D-Dimer Sodium 139 Potassium 3.6 Chloride 104 Carbon Dioxide 30 BUN 6 L Creatinine 0.58 Estimated GFR > 60.0 BUN/Creatinine Ratio 10.3 Glucose 87 Calcium 9.5 Total Bilirubin 0.4 AST 21 ALT 11 Alkaline Phosphatase 88 Total Protein 7.5 Albumin 3.9 Globulin 3.6 Albumin/Globulin Ratio 1.1 Urine RBC 0-1/hpf Urine WBC 1-5/hpf Ur Squamous Epith Cells 1-5 /hpf Calcium Oxalate Crystal Moderate H Uric Acid Crystals Few H Urine Bacteria None seen Ur Culture Indicated? Cult not indicated SARS-CoV-2 (PCR) 12/17/20 12/17/20 14:40 17:00 WBC RBC Hgb Hct MCV MCH MCHC RDW Plt Count Neut % (Auto) Lymph % (Auto) [place] % (Auto) Eos % (Auto) Baso % (Auto) Neut # (Auto) Lymph # (Auto) [place] # (Auto) Eos # (Auto) Baso # (Auto) D-Dimer 578 H Sodium Potassium Chloride Carbon Dioxide BUN Creatinine Estimated GFR BUN/Creatinine Ratio Glucose Calcium Total Bilirubin AST ALT Alkaline Phosphatase Total Protein Albumin Globulin Albumin/Globulin Ratio Urine RBC Urine WBC Ur Squamous Epith Cells Calcium Oxalate Crystal Uric Acid Crystals Urine Bacteria Ur Culture Indicated? SARS-CoV-2 (PCR) Negative [facility] Medical History Depression with anxiety Hypertension Medullary sponge kidney Right renal stone Surgical History History of lithotripsy History of nephrostomy History of renal stent Family History Father Hypertension Stroke Mother Cancer Social History household members: spouse and children Smoking Status: Former smoker alcohol intake: former Assessment & Plan Assessment & Plan narrative: Ms. Whitlock is a 30W admitted for recurrent pyelonpehritis. 1. Pyelonephritis, acute, present on admission, in the setting of hydronephrosis with non-obstructing right renal stone, with history of medullary sponge kidney - no acute obstruction on renal imaging. CT shows R hydronpehrosis on admission which improved on repeat ultrasound today. Repeated imaging due to continued severe pain. - continue ceftriaxone, treat for pyelonephritis. Follow up urine cultures. Does not appear to have received continued antibiotics at outside hospital she recently left, though presume some given in the ER this may effect results. - PO pain control with IV dilaudid for breakthrough. Try and limit opiates. Added PO ativan with improvement this afternoon. 2. Hypertension, chronic - continue home medications. 3. Depression with anxiety, acute on chronic, present on admission -continue patient's Lexapro 4. Obesity as evidence by BMI of 38.3, acute on chronic, present on admission -consideration will be given to dietary counseling Code status: Full code Surrogate decision maker: Armand Whitlock spouse COVID PCR: Negative VTE/DVT prophylaxis: Lovenox 40 mg COVID-19 COVID-19 status: Negative Quality VTE Deep Vein Thrombosis/Pulmonary Embolism Present on Admission: No
[2020-12-18] MEDS: polyethylene glycoL 3350 17 GM POWD.PACK PO (12:08)
[2020-12-18] MEDS: LORazepam 1 MG TABLET 2 MG PO ×3 (12:08→19:22)
[2020-12-18] MEDS: GABAPENTIN 300 MG CAPSULE PO ×2 (14:34→22:45)
[2020-12-18] MEDS: HYDROMORPHONE 2 MG INJ 1 MG IV ×2 (19:23→23:37)
[2020-12-18] MEDS: cefTRIAXone 1,000 MG in SODIUM CHLORIDE 0.9% 100 ML 200 ML IV (19:33)
--- NOTE | 2020-12-18 22:41 | PC.NURSE ---
SHIFT: Precepting for Faby, who acted as primary RN. Pt. c/o severe pain throughout shift. Obtained temporary relief for very short periods. Received maximum of pain meds ordered, still reporting unrelieved pain, stating that even when she sleeps she is aware of and dreaming about the pain. However, she became quite lethargic, drowsy, difficult to keep awake, with oxygen sats dropping to high-80's. Extensive teaching/discussion with patient regarding prevention of stone development. Teaching including increased fluid intake and taking OTC potassium citrate. Also discussed the importance of obtaining a PCP and a silk brusher. Patient is transient to [facility] and has questions about obtaining insurance; consult placed to [facility].
[2020-12-18] MEDS: SENNOSIDES 8.6 MG TABLET 17.2 MG PO (22:45)
[2020-12-19] VITALS (20 sets, daily range): BP systolic 129–157; BP diastolic 96–108; PULSE 70–85; RESP 15–17; TEMP 36.2–37.1; O2SAT 95–99
--- NOTE | 2020-12-19 00:08 | PC.NURSE ---
Desat. to low 80's when sleeping. JACIEL Ojeda notified, initiated 2 liters & SPO2 now is 98%. Will cont. POC & monitor.
[2020-12-19 06:15] LABS: Add Manual Diff / Slide Review NO; Basophils Absolute Auto 100 /uL (0-100); Basophils Percent Auto 0.7 % (0-2); Chloride 102 mmol/L (98-107); Eosinophils Absolute Auto 500 /uL (0-450); Eosinophils Percent Auto 5.3 % (2-4); HEMOLYSIS < 15 (0-50); Hematocrit 37.1 % (36-46); Hemoglobin 12.3 g/dL (12.0-16.0); Lymphocytes Absolute Auto 2500 /uL (1100-4500); Lymphocytes Percent Auto 27.3 % (25-40); Mean Corpuscular HGB Conc 33.1 % (30-36); Mean Corpuscular Hemoglobin 28.9 PG (26-34); Monocytes Absolute Auto 600 /uL (0-900); Monocytes Percent Auto 7.2 % (3-14); Neutrophils Absolute Auto 5400 /uL (1500-7000); Neutrophils Percent Auto 59.5 % (50-75); Platelet Count 318 X10^3/uL (150-400); Red Blood Cell Count 4.26 X10^6/uL (4.0-5.2); Red Cell Distribution Width 12.9 % (11.6-14.8)
[2020-12-19 06:17] LABS: BUN Creatinine Ratio 14.9 (6-22); Blood Urea Nitrogen 10 mg/dL (7-17); Calcium 9.2 mg/dL (8.4-10.2); Carbon Dioxide 28 mmol/L (22-32); Estimated Glomerular Filt Rate > 60.0 mL/min (>60); Glucose 97 mg/dL (70-100); Potassium 3.9 mmol/L (3.4-5.1); Sodium 136 mmol/L (137-145)
[2020-12-19] MEDS: LORazepam 1 MG TABLET 2 MG PO ×2 (09:17→12:55)
[2020-12-19] MEDS: LOSARTAN 25 MG TABLET PO (09:18)
[2020-12-19] MEDS: DOCUSATE 100 MG CAPSULE PO ×2 (09:18→20:07)
[2020-12-19] MEDS: ENOXAPARIN 40 MG/0.4 ML SYRINGE SUBCUT (09:18)
[2020-12-19] MEDS: ESCITALOPRAM 10 MG TABLET 20 MG PO (09:18)
[2020-12-19] MEDS: GABAPENTIN 300 MG CAPSULE PO ×3 (09:19→20:08)
[2020-12-19] MEDS: METOPROLOL ER 50 MG TABLET PO (09:19)
[2020-12-19] MEDS: SODIUM CHLORIDE 0.9% FLUSH 10 ML IV ×2 (09:20→20:07)
[2020-12-19] MEDS: KETOROLAC 10 MG TABLET PO ×2 (09:20→15:39)
[2020-12-19] MEDS: HYDROMORPHONE 4 MG TABLET PO ×4 (12:15→23:39)
[2020-12-19] MEDS: ACETAMINOPHEN 325 MG TABLET 975 MG PO ×2 (12:18→17:38)
--- NOTE | 2020-12-19 12:19 | P.PN_ITS ---
Subjective Subjective Date Patient Seen: 12/19/20 Time Patient Seen: 12:19 Interval history: Still with severe R sided pain she states. Asking for IV medications preferentially. refusing tylenol. will try to transition to oral medications only today. She was sleeping comfortably when entering the room. Exam Vital Signs (past 8 hours): - 12/19/20 05:43 12/19/20 09:03 12/19/20 09:04 Temperature 97.2 F L Pulse Rate 85 Respiratory Rate 16 Blood Pressure 129/98 H Pulse Oximetry 96 98 96 12/19/20 09:11 12/19/20 09:18 12/19/20 09:19 Temperature 98.8 F Pulse Rate 70 70 70 Respiratory Rate 17 Blood Pressure 154/99 H 154/99 H 154/99 H Pulse Oximetry 99 12/19/20 11:43 Temperature Pulse Rate Respiratory Rate Blood Pressure Pulse Oximetry 97 Oxygen Delivery Method Room Air Oxygen Flow Rate 2 Narrative Exam Narrative: GENERAL APPEARANCE: Well developed, well nourished, obese female BMI 37.8 in no acute distress SKIN: Inspection of the skin reveals no rashes, ulcerations or petechiae. HEENT: Normocephalic atraumatic, extraocular muscles are intact, oropharynx is clear and mucous membranes are moist, neck is supple without adenopathy NECK: Supple and symmetric. There was no thyroid enlargement, and no tenderness, or masses were felt. CHEST: Normal AP diameter and normal contour without any kyphoscoliosis. LUNGS: Auscultation of the lungs revealed no wheezes, rhonchi, or rales. CARDIOVASCULAR: There was a regular rate and rhythm without any murmurs, gallops, rubs. Peripheral pulses were 2+ and symmetric. ABDOMEN: Soft, non-distended. Tenderness reported with minimal palpation of abdomen and back. MUSCULOSKELETAL: There was no tenderness or effusions noted. Muscle strength and tone were normal. EXTREMITIES: No cyanosis, clubbing or edema. NEUROLOGIC: Alert and oriented x 3. Normal affect. Strength is +5/5 in the Upper Extremities and Lower Extremities Bilaterally. Sensation to touch was normal. Objective Labs Result Diagrams: 12/19/20 05:50 12/19/20 05:50 Labs: Laboratory Results - last 24 hr 12/19/20 12/19/20 05:50 05:50 WBC 9.0 RBC 4.26 Hgb 12.3 Hct 37.1 MCV 87.0 MCH 28.9 MCHC 33.1 RDW 12.9 Plt Count 318 Neut % (Auto) 59.5 Lymph % (Auto) 27.3 [place] % (Auto) 7.2 Eos % (Auto) 5.3 H Baso % (Auto) 0.7 Neut # (Auto) 5400 Lymph # (Auto) 2500 [place] # (Auto) 600 Eos # (Auto) 500 H Baso # (Auto) 100 Sodium 136 L Potassium 3.9 Chloride 102 Carbon Dioxide 28 BUN 10 Creatinine 0.67 Estimated GFR > 60.0 BUN/Creatinine Ratio 14.9 Glucose 97 Calcium 9.2 PFSH Medical History Depression with anxiety Hypertension Medullary sponge kidney Right renal stone Surgical History History of lithotripsy History of nephrostomy History of renal stent Family History Father Hypertension Stroke Mother Cancer Social History household members: spouse and children Smoking Status: Former smoker alcohol intake: former Assessment & Plan Assessment & Plan narrative: Ms. Whitlock is a 30W admitted for recurrent pyelonpehritis. 1. Pyelonephritis, acute, present on admission, in the setting of hydronephrosis with non-obstructing right renal stone, with history of medullary sponge kidney - no acute obstruction on renal imaging. CT shows R hydronpehrosis on admission which improved on repeat ultrasound today. Repeated imaging due to continued severe pain. - continue ceftriaxone, treat for pyelonephritis. Follow up urine cultures which are currently without growth. Does not appear to have received continued antibiotics at outside hospital she recently left, though presume some given in the ER this may effect results. - PO pain control. Discontinue IV dilaudid today. Try and limit opiates. Added PO ativan with improvement this afternoon. She is starting to request IV medications preferentially, she states oral medications including 4 mg PO dilaudid, toradol, and gabapentin are ineffective and only gets relief with 1 mg of IV dilaudid. Added lidocaine patch and can add PO lorazepam as well. 2. Hypertension, chronic - continue home medications. 3. Depression with anxiety, acute on chronic, present on admission -continue patient's Lexapro 4. Obesity as evidence by BMI of 38.3, acute on chronic, present on admission -consideration will be given to dietary counseling Code status: Full code Surrogate decision maker: Armand Whitlock spouse COVID PCR: Negative VTE/DVT prophylaxis: Lovenox 40 mg COVID-19 COVID-19 status: Negative Quality VTE Deep Vein Thrombosis/Pulmonary Embolism Present on Admission: No
[2020-12-19] MEDS: cefTRIAXone 1,000 MG in SODIUM CHLORIDE 0.9% 100 ML 200 ML IV (19:11)
[2020-12-20 00:30] VITALS: BP 139/94; PULSE 77
[2020-12-20] MEDS: HYDROMORPHONE 4 MG TABLET PO ×3 (04:07→12:05)
[2020-12-20] MEDS: KETOROLAC 10 MG TABLET PO (04:07)
[2020-12-20 04:13] VITALS: BP 142/103; PULSE 71; RESP 16; TEMP 36.2; O2SAT 96
[2020-12-20] MEDS: LORazepam 1 MG TABLET 2 MG PO ×2 (05:31→09:17)
[2020-12-20 06:54] LABS: Add Manual Diff / Slide Review NO; Basophils Absolute Auto 100 /uL (0-100); Eosinophils Absolute Auto 400 /uL (0-450); Eosinophils Percent Auto 5.9 % (2-4); Hematocrit 37.4 % (36-46); Hemoglobin 12.7 g/dL (12.0-16.0); Lymphocytes Absolute Auto 2300 /uL (1100-4500); Lymphocytes Percent Auto 33.5 % (25-40); Mean Corpuscular Hemoglobin 29.3 PG (26-34); Mean Corpuscular Volume 86.2 fL (80-100); Monocytes Absolute Auto 400 /uL (0-900); Monocytes Percent Auto 5.6 % (3-14); Neutrophils Absolute Auto 3800 /uL (1500-7000); Platelet Count 313 X10^3/uL (150-400); Red Blood Cell Count 4.34 X10^6/uL (4.0-5.2)
[2020-12-20 07:04] LABS: BUN Creatinine Ratio 24.6 (6-22); Blood Urea Nitrogen 14 mg/dL (7-17); Calcium 9.2 mg/dL (8.4-10.2); Carbon Dioxide 28 mmol/L (22-32); Chloride 104 mmol/L (98-107); Estimated Glomerular Filt Rate > 60.0 mL/min (>60); Glucose 99 mg/dL (70-100); HEMOLYSIS < 15 (0-50); Potassium 4.2 mmol/L (3.4-5.1); Sodium 137 mmol/L (137-145)
[2020-12-20] MEDS: SODIUM CHLORIDE 0.9% FLUSH 10 ML IV (08:30)
[2020-12-20] MEDS: ACETAMINOPHEN 325 MG TABLET 975 MG PO (08:31)
[2020-12-20] MEDS: GABAPENTIN 300 MG CAPSULE PO (08:31)
[2020-12-20 08:35] VITALS: BP 142/103; PULSE 71
[2020-12-20] MEDS: ESCITALOPRAM 10 MG TABLET 20 MG PO (08:35)
[2020-12-20] MEDS: LOSARTAN 25 MG TABLET PO (08:35)
[2020-12-20] MEDS: DOCUSATE 100 MG CAPSULE PO (08:35)
[2020-12-20] MEDS: ENOXAPARIN 40 MG/0.4 ML SYRINGE SUBCUT (08:35)
[2020-12-20] MEDS: METOPROLOL ER 50 MG TABLET PO (08:35)
[2020-12-20 09:54] VITALS: BP 150/108; PULSE 85; RESP 15; TEMP 36.4; O2SAT 97
--- NOTE | 2020-12-20 10:14 | PM.DS.1 ---
History of Present Illness History of Present Illness Date Patient Seen: 12/20/20 Time Patient Seen: 10:14 Chief complaint: RIGHT SIDE PAIN Narrative: This is a 30-year-old female with a past medical history of hypertension and prior nephrolithiasis (requiring multiple ureteral stents and nephrostomy tubes, none currently in place) who was recently admitted in October of this year with right-sided pyelonephritis who presented to the emergency room today with continuing right-sided back pain. This pain she states is more severe (8-9/10) than her prior episodes, and it hurts when she takes a breath in in her ribs on that side. There is no radiation into the groin. The pain is sharp. She has been dealing with this pain for the past 5 days. She was admitted to [facility] from December 13 until today when she was released. She states that she was still feeling ill, but was discharged anyway. Review of records show the initial imaging found no acute abnormalities and she was treated with an antiviral for possible shingles though no rash was noted. She denies any fevers or chills, lower abdominal pain, dysuria, or urinary frequency. Denies rash except for some redness on her right buttocks which she equates to prolonged sitting in the hospital. In the emergency room, initial laboratory findings were unremarkable. Urinalysis did show positive nitrites, 1-5 WBC but 1-5 squamous epithelial cells. There also calcium oxalate crystals and uric acid crystals. Specimen was not reflex for culture but the patient's CT imaging did show right-sided pyelonephritis with hydronephrosis but no obstructing stone. Urology was consulted but said that there were no acute interventions. Discharge Providers Provider Date of admission: 12/17/20 18:15 Discharge Date: 12/20/20 Consults: 12/18/20 21:33 Consult to [facility] - Cardiology Clinical Nurse Specialist Routine Comment: pt has questions about obtaining insurance and PCP Discharge provider: Jimbo Barajas DO Summary Hospital Course Discharge Diagnosis: 1. Pyelonephritis, acute, present on admission, in the setting of hydronephrosis with non-obstructing right renal stone, with history of medullary sponge kidney 2. Hypertension, chronic 3. Depression with anxiety, acute on chronic, present on admission 4. Obesity as evidence by BMI of 38, acute on chronic, present on admission Hospital Course: This is a 30-year-old female that past history of prior nephrolithiasis, medullary sponge kidney, hypertension, depression anxiety, and obesity who presented with continued right-sided abdominal pain after discharge from an outside hospital. She had evidence of acute pyelonephritis on the right on CT imaging as well as hydronephrosis on that side, however there were no obstructing stones present and urology stated that there were no urgent surgical interventions. Her cultures were negative but she will be treated as a pyelonephritis as she had been receiving antibiotics. After admission her pain was initially difficult to control but this improved over the course of a few days. She was ultimately discharged on oral pain medications and additional anxiolytics as these seemed to help more with her pain control. I recommend that she follow-up with her primary care provider for referral to Urology for continued management. She may also need pain management as an outpatient. Her home losartan dose was decreased initially over concerns for possible hypotension in the setting of pyelonephritis, but this was slowly increased and she can resume her home dosing upon discharge. Time Spent with Patient Time spent: Greater than 30 minutes Exam Vital Signs (past 8 hours): - 12/20/20 04:13 12/20/20 08:35 12/20/20 09:54 Temperature 97.1 F L 97.6 F Pulse Rate 71 71 85 Respiratory Rate 16 15 Blood Pressure 142/103 H 142/103 H 150/108 H Pulse Oximetry 96 97 Oxygen Delivery Method Room Air Oxygen Flow Rate 0 Narrative Exam Narrative: GENERAL APPEARANCE: Well developed, well nourished, obese female BMI 37.8 in no acute distress SKIN: Inspection of the skin reveals no rashes, ulcerations or petechiae. HEENT: Normocephalic atraumatic, extraocular muscles are intact, oropharynx is clear and mucous membranes are moist, neck is supple without adenopathy NECK: Supple and symmetric. There was no thyroid enlargement, and no tenderness, or masses were felt. CHEST: Normal AP diameter and normal contour without any kyphoscoliosis. LUNGS: Auscultation of the lungs revealed no wheezes, rhonchi, or rales. CARDIOVASCULAR: There was a regular rate and rhythm without any murmurs, gallops, rubs. Peripheral pulses were 2+ and symmetric. ABDOMEN: Soft, non-distended. markedly improved tenderness today. MUSCULOSKELETAL: There was no tenderness or effusions noted. Muscle strength and tone were normal. EXTREMITIES: No cyanosis, clubbing or edema. NEUROLOGIC: Alert and oriented x 3. Normal affect. Strength is +5/5 in the Upper Extremities and Lower Extremities Bilaterally. Sensation to touch was normal. Objective Labs Result Diagrams: 12/20/20 06:41 12/20/20 06:41 Labs: Laboratory Results - last 24 hr 12/20/20 12/20/20 06:41 06:41 WBC 7.0 RBC 4.34 Hgb 12.7 Hct 37.4 MCV 86.2 MCH 29.3 MCHC 34.0 RDW 13.0 Plt Count 313 Neut % (Auto) 54.0 Lymph % (Auto) 33.5 [place] % (Auto) 5.6 Eos % (Auto) 5.9 H Baso % (Auto) 1.0 Neut # (Auto) 3800 Lymph # (Auto) 2300 [place] # (Auto) 400 Eos # (Auto) 400 Baso # (Auto) 100 Sodium 137 Potassium 4.2 Chloride 104 Carbon Dioxide 28 BUN 14 Creatinine 0.57 Estimated GFR > 60.0 BUN/Creatinine Ratio 24.6 H Glucose 99 Calcium 9.2 PFSH Medical History Depression with anxiety Hypertension Medullary sponge kidney Right renal stone Surgical History History of lithotripsy History of nephrostomy History of renal stent Family History Father Hypertension Stroke Mother Cancer Social History household members: spouse and children Smoking Status: Former smoker alcohol intake: former Discharge Plan Discharge Plan Patient Disposition: Home Provider Discharge Comment: You were admitted to the hospital with recurrent pyelonephritis on the R, I recommend continued antibiotics and try to avoid opiate pain medications as much as possible while the pain improves. You should follow up with a urologist as an outpatient. For pain management I recommend scheduled tylenol and motrin, the pain patches, and as needed stronger medications. Discharge orders & Medications Prescriptions: New hydromorphone 4 mg Tablet 2 - 4 mg PO Q4HR PRN (Reason: Pain, Severe (7-10)) 7 Days Qty: 40 RF: 0 lorazepam 1 mg Tablet 2 mg PO Q4H PRN (Reason: Alcohol Withdrawal) 7 Days Qty: 20 RF: 0 cefdinir 300 mg capsule 300 mg PO BID 10 Days Qty: 20 RF: 0 ondansetron 4 mg tablet,disintegrating 4 mg PO Q8H PRN (Reason: nausea and vomiting) 14 Days Qty: 30 RF: 0 Continued losartan 100 mg Tablet 100 mg PO DAILY RF: 0 escitalopram oxalate 20 mg Tablet 20 mg PO DAILY RF: 0 metoprolol succinate 50 mg Tablet Extended Release 24 Hr 50 mg PO DAILY RF: 0 acetaminophen 325 mg Tablet 650 mg PO Q6H PRN (Reason: Mild Pain (Scale Score 1-4)) RF: 0 lidocaine [Lidoderm] 5 % Adhesive Patch,Medicated 1 patch TOPICAL DAILY RF: 0 gabapentin 300 mg Capsule 300 mg PO TID RF: 0 ondansetron 4 mg Tablet,Disintegrating 4 mg PO Q8H PRN (Reason: Nausea) RF: 0 Discontinued acyclovir 800 mg Tablet 800 mg PO 5XD RF: 0 Medication counseling provided by Pharmacist: Yes Pharmacist Comment: You inquired about a prescription for Zofran. I spoke with Dr. Barajas who intends to send one to [facility] for you. Diet/Activity/Treatments Diet: Diet as Tolerated Activity: As tolerated Quality VTE Deep Vein Thrombosis/Pulmonary Embolism Present on Admission: No
[2020-12-20 11:00] VITALS: O2SAT 97
--- NOTE | 2020-12-20 13:14 | PC.NURSE ---
Pt received sleeping this a.m. Lethargic awakened A&O x3, reports pain about the same always / she reports ativan helping to take the edge of her pain. PRN ativan 1mg given as pt becomes lethargic with 2mg ativan. Good effect observed, pt tolerating po breakfast this a.m. Pt evaluated by MD and cleared for discharge home. Pt ambulating well around the room and up to bathroom independently this a.m. Pt verbalizes acknowledgement and agreement with discharge bill, medications and follow up with urologist recommendations. She is escorted via wheelchair with all of her belongings to private vehicle with her at approximately 12:00 p.m.
== END 2020-12-20 12:00 | disposition home or self-care (01) | DRG 690 ==
LOC: ED 14:16 → AC 18:16
PROVIDERS: Admitting Provider Internal Medicine; Emergency Provider Emergency Medicine; Referring Provider Emergency Medicine; Visit Provider Internal Medicine
DX: N10 Acute pyelonephritis (principal); Q61.5 Medullary cystic kidney; I10 Essential (primary) hypertension; F32.9 Major depressive disorder, single episode, unspecified; F41.9 Anxiety disorder, unspecified; N13.6 Pyonephrosis; E66.9 Obesity, unspecified; Z68.38 Body mass index [BMI] 38.0-38.9, adult; Z20.822 Contact with and (suspected) exposure to COVID-19
CPT/HCPCS: 36415; 71260; 74177; 76770; 80048; 80053; 81003; 81015; 81025; 85025; 85379; 87086; 87635; 94760; 96361; 96365; 96375; 96376; 99284; C9803; J0696; J1170; J1650; J1885; J1956; J2405; Q9967

== ENCOUNTER 2021-08-15 08:27 | Emergency (ER) | payer OTHER, SELFPAY ==
[2020-12-17 18:21] VITALS: BMI 37.8
[2021-08-15] VITALS (8 sets, daily range): BP systolic 120–142; BP diastolic 74–97; PULSE 70–98; RESP 17; TEMP 36.8; O2SAT 94–97; BMI 37.8
--- NOTE | 2021-08-15 09:19 | ED_ITS ---
HPI - Back Pain/Injury General Chief Complaint: Back Pain/Injury Stated Complaint: Extreme back pain Time Seen by Provider: 08/15/21 09:18 Source: patient Limitations: no limitations History of Present Illness HPI Narrative: This is a 31-year-old female comes emergency department with complaint of right flank and abdominal pain. Patient states she has had this issue on and off for a couple months most recently over the last several days. She states in her right flank and right upper quadrant. She also noticed a little bit of tailbone pain recently. She has been nauseated but had had any vomiting until today. She states she has been having normal bowel movements. She has had some dysuria with urination but no frequency or urgency. She denies vaginal discharge or bleeding. She denies fevers or chills. No cold cough or congestion. No chest pain or shortness of breath. She states she was seen at [facility] told she had pancreatitis was given pain medications and told she needed an ultrasound but they did have it available but she did have a CT done. I do not have access to those records at this time. Last night she was at [facility] [place], she states no imaging was done but she was given pain medications and told she had pancreatitis again. Patient is on Lexapro 2 medications for hypertension. She states she has been able to take these. She has history of medullary sponge kidney. She has had surgery for her kidney with right nephrostomy and renal stents and removal of kidney stone when she lived in [place]. She has not established with a physician or primary care locally. She denies tobacco, alcohol or illicit. She states she was dropped off by her today. Related Data Home Medications Medication Instructions Recorded Confirmed escitalopram oxalate 20 mg tablet 20 mg PO DAILY 10/14/20 12/17/20 losartan 100 mg tablet 100 mg PO DAILY 10/14/20 12/17/20 metoprolol succinate 50 mg 50 mg PO DAILY 10/14/20 12/17/20 tablet,extended release 24 hr acetaminophen 325 mg tablet 650 mg PO Q6H PRN 12/17/20 12/17/20 gabapentin 300 mg capsule 300 mg PO TID 12/17/20 12/17/20 lidocaine 5 % topical patch 1 patch TOPICAL DAILY 12/17/20 12/17/20 (Lidoderm) ondansetron 4 mg disintegrating 4 mg PO Q8H PRN 12/17/20 12/17/20 tablet Previous Rx's Medication Instructions Recorded ciprofloxacin HCl 500 mg tablet 500 mg PO Q12H #14 tab 08/15/21 oxycodone-acetaminophen 5 mg-325 1 tab PO Q6H PRN #5 tab 08/15/21 mg tablet (Percocet) Allergies Allergy/AdvReac Type Severity Reaction Status Date / Time Penicillins Allergy Verified 08/15/21 09:01 Review of Systems Review of Systems ROS Unobtainable: All systems reviewed & are unremarkable except as noted in HPI and below Patient History Medical History Depression with anxiety Hypertension Medullary sponge kidney Right renal stone Surgical History History of lithotripsy History of nephrostomy History of renal stent Family History Father Hypertension Stroke Mother Cancer Social History household members: spouse and children Smoking Status: Former smoker alcohol intake: former Smoking Status: Former smoker alcohol intake frequency: holidays/special occasions only Substance Use Type: does not use Exam Narrative Exam Narrative: GENERAL: Alert and oriented x three, female in moderate distress. HEENT: Head normocephalic, atraumatic, EOMI, pupils reactive, face symmetric, moist mucous membranes NECK: Supple, full range of motion CARDIOVASCULAR: Regular rate and rhythm without murmurs, rubs or gallops. RESPIRATORY: Breath sounds equal bilaterally, no wheezes rales or rhonchi. ABDOMEN: Soft, positive for right upper quadrant tenderness Normoactive bowel sounds all 4 quadrants. No guarding or rebound, rigidity, no mass : Right CVA tenderness, patient has healed incisions over her right flank, no left CVA tenderness. EXTREMITIES: Normal range of motion, no clubbing or edema. Neurovascularly intact NEUROLOGICAL: Cranial nerves II through XII grossly intact. Moving all extremities SKIN: Warm, dry, no petechiae, no rashes or lesions. Initial Vital Signs Initial Vital Signs: Vital Signs Temperature 98.3 F 08/15/21 08:55 Pulse Rate 98 H 08/15/21 08:55 Respiratory Rate 17 08/15/21 08:55 Blood Pressure 142/97 H 08/15/21 08:55 Pulse Oximetry 96 08/15/21 08:55 Course Orders Ordered: ED Orders 08/15/21 11:31 CT abdomen pelvis w con Stat Discontinued Medications Hydromorphone HCl (Hydromorphone 1 Mg Inj) 1 mg IV NOW ONE Stop: 08/15/21 11:34 Last Admin: 08/15/21 11:58 Dose: 1 mg Documented by: FLORINDA Hydromorphone HCl (Hydromorphone 1 Mg Inj) 1 mg IV NOW ONE Stop: 08/15/21 13:29 Last Admin: 08/15/21 13:51 Dose: 1 mg Documented by: FLORINDA Sodium Chloride (Normal Saline 0.9%) 1,000 mls @ 1,000 mls/hr IV BOLUS ONE Stop: 08/15/21 11:11 Last Infusion: 08/15/21 11:59 Dose: 0 mls/hr Documented by: Admin: 08/15/21 10:40 Dose: 1,000 mls/hr Documented by: RASHAD Ciprofloxacin (Cipro) 400 mg in 200 mls @ 200 mls/hr IV NOW ONE Stop: 08/15/21 12:58 Last Infusion: 08/15/21 13:51 Dose: 0 mls/hr Documented by: Admin: 08/15/21 12:36 Dose: 200 mls/hr Documented by: FLORINDA Ketorolac Tromethamine (Ketorolac 30 Mg/Ml Vial) 30 mg IV NOW ONE Stop: 08/15/21 10:13 Last Admin: 08/15/21 10:40 Dose: 30 mg Documented by: RASHAD Ondansetron HCl (Ondansetron 4 Mg/2 Ml Inj) 4 mg IV NOW ONE Stop: 08/15/21 10:13 Last Admin: 08/15/21 10:40 Dose: 4 mg Documented by: RASHAD Reevaluation(s) Reevaluation #1: Patient had minimal improvement with her pain. Second dose of pain medication was prescribed. Patient has bacteria in urine but no other acute changes. Ultrasound does not show any clear changes that cause her pain today. Need for CT imaging, we were able to obtain records and she did have a lipase of 1400 on her last ER visit at [place] on August 11 Reevaluation #2: On recheck patient's pain improved with 2nd pain medication but is starting to reoccur. She has not had any persistent vomiting the department. Discussed her findings today, possibility for pyelonephritis she is tender in her flank. She is afebrile she has bacteria but no other clear changes for infection in her urine. This time I would empirically treat, urine culture was sent, short prescription for pain medication. Patient sometimes nauseated but states she can not afford Zofran she does have current infections she could try oral Benadryl for nausea. Return precautions discussed. Vital Signs Vital signs: Vital Signs - 8 hr 08/15/21 12:38 08/15/21 12:39 08/15/21 13:00 Pulse Rate 78 73 75 Blood Pressure 137/74 Pulse Oximetry 97 95 94 08/15/21 13:30 08/15/21 13:39 08/15/21 13:40 Pulse Rate 80 75 70 Blood Pressure 120/82 123/80 Pulse Oximetry 96 97 96 08/15/21 14:00 Pulse Rate 88 Blood Pressure 120/84 Pulse Oximetry 95 MDM - Back Pain/Injury Lab Data Result diagrams: 08/15/21 09:22 08/15/21 09:22 Labs: Lab Results 08/15/21 08/15/21 08/15/21 Range/Units 09:22 09:22 09:22 WBC 11.7 H (4.5-11.0) X10^3/uL RBC 5.11 (4.0-5.2) X10^6/uL Hgb 14.5 (12.0-16.0) g/dL Hct 42.5 (36-46) % MCV 83.1 (80-100) fL MCH 28.3 (26-34) PG MCHC 34.1 (30-36) % RDW 14.0 (11.6-14.8) % Plt Count 305 (150-400) X10^3/uL Neut % (Auto) 75.9 H (50-75) % Lymph % (Auto) 17.7 L (25-40) % [place] % (Auto) 4.4 (3-14) % Eos % (Auto) 1.4 L (2-4) % Baso % (Auto) 0.6 (0-2) % Neut # (Auto) 8900 H (6267-7056) /uL Lymph # (Auto) 2100 (4744-6394) /uL [place] # (Auto) 500 (0-900) /uL Eos # (Auto) 200 (0-450) /uL Baso # (Auto) 100 (0-100) /uL Sodium 138 (137-145) mmol/L Potassium 4.0 (3.4-5.1) mmol/L Chloride 103 (98-107) mmol/L Carbon Dioxide 27 (22-32) mmol/L BUN 8 (7-17) mg/dL Creatinine 0.68 (0.52-1.04) mg/dL Estimated GFR > 60.0 (>60) mL/min BUN/Creatinine Ratio 11.8 (6-22) Glucose 98 (70-100) mg/dL Calcium 9.0 (8.4-10.2) mg/dL Total Bilirubin 0.7 (0.2-1.3) mg/dL AST 22 (14-36) IU/L ALT 17 (<35) IU/L Alkaline Phosphatase 96 (38-126) U/L Total Protein 7.9 (6.3-8.2) g/dL Albumin 4.3 (3.5-5.0) g/dL Globulin 3.6 (1.7-4.1) g/dL Albumin/Globulin Ratio 1.2 (1.0-2.8) Amylase 85 (30-110) U/L Lipase 97 (23-300) U/L Urine RBC (0-5/HPF) Urine WBC (0-5/HPF) Ur Squamous Epith Cells (0-5/HPF) Urine Bacteria (None) Ur Culture Indicated? 08/15/21 Range/Units 09:50 WBC (4.5-11.0) X10^3/uL RBC (4.0-5.2) X10^6/uL Hgb (12.0-16.0) g/dL Hct (36-46) % MCV (80-100) fL MCH (26-34) PG MCHC (30-36) % RDW (11.6-14.8) % Plt Count (150-400) X10^3/uL Neut % (Auto) (50-75) % Lymph % (Auto) (25-40) % [place] % (Auto) (3-14) % Eos % (Auto) (2-4) % Baso % (Auto) (0-2) % Neut # (Auto) (2246-5363) /uL Lymph # (Auto) (3477-6426) /uL [place] # (Auto) (0-900) /uL Eos # (Auto) (0-450) /uL Baso # (Auto) (0-100) /uL Sodium (137-145) mmol/L Potassium (3.4-5.1) mmol/L Chloride (98-107) mmol/L Carbon Dioxide (22-32) mmol/L BUN (7-17) mg/dL Creatinine (0.52-1.04) mg/dL Estimated GFR (>60) mL/min BUN/Creatinine Ratio (6-22) Glucose (70-100) mg/dL Calcium (8.4-10.2) mg/dL Total Bilirubin (0.2-1.3) mg/dL AST (14-36) IU/L ALT (<35) IU/L Alkaline Phosphatase (38-126) U/L Total Protein (6.3-8.2) g/dL Albumin (3.5-5.0) g/dL Globulin (1.7-4.1) g/dL Albumin/Globulin Ratio (1.0-2.8) Amylase (30-110) U/L Lipase (23-300) U/L Urine RBC None seen (0-5/HPF) Urine WBC 1-5/hpf (0-5/HPF) Ur Squamous Epith Cells 1-5 /hpf (0-5/HPF) Urine Bacteria Many (>30) H (None) Ur Culture Indicated? Cult not indicated Point of Care Testing Test Results Negative Urine Dip Bedside Urine Glucose Negative Bedside Urine Bilirubin - Negative Bedside Urine Ketone - Negative Urine Specific [place] 1.015 Bedside Urine Occult Blood - Negative Bedside Urine pH 7.5 Bedside Urine Protein - Negative Bedside Urine Urobilinogen 0.2 Bedside Urine Nitrite - Negative Bedside Urine Leukocytes - Negative Esterase Imaging Data US - abdomen: Radiologist's Impression: Close Abdomen/Pelvis CT (Signed) Carlito Arnett - 08/15/21 Abdomen Ultrasound (Signed) Rocky Rowan - 08/15/21 Renal Ultrasound (Signed) Robert Nelson - 12/18/20 Chest/Abdomen/Pelvis CT (Signed) Robert Nelson - 12/17/20 Pelvis Ultrasound (Signed) Amor Nuñez - 10/16/20 Telemetry Strips 10/13/20 Renal Ultrasound (Signed) Kathrin Watson - 10/13/20 Abdomen/Pelvis CT (Signed) Deepak Ojeda - 10/04/20 Launch?Image [address] [address] Ultrasound Report Signed Patient: Diandra Whitlock MR#: [id number] : 1990 Acct:[id number] Age/Sex: 31 / F Date of Service: 08/15/21 Loc: ED Accession Number: [id number] ?? Procedure: US abdomen complete Ordering Provider: Dayanna Govea D.O. PROCEDURE:? US ABDOMEN COMPLETE ? INDICATIONS:? RIGHT FLANK/ RUQ PAIN ? TECHNIQUE:? Real-time scanning was performed of the abdominal and retroperitoneal organs, with image documentation.? ? COMPARISON:? None. ? FINDINGS:? ? Liver:? Increased hepatic parenchymal echogenicity indicative of hepatic steatosis. ? Gallbladder:? Normally distended gallbladder.? No gallbladder wall thickening, sludge, gallstone, or pericholecystic fluid. ? Biliary ducts:? Normal caliber. ? Pancreas:? Visualized portions of the pancreas are sonographically normal.? ? Spleen:? Spleen is normal in size and homogeneous in echotexture.? ? Kidneys:? There are two nonobstructing right renal calculi measuring 7 mm in the upper pole and 1.4 cm in the lower pole.? No hydronephrosis. ? Aorta:? Visualized aorta is normal in caliber at less than 3 cm.? ? Iliacs:? Proximal common iliac arteries are normal in caliber at less than 2.5 cm.? ? IVC:? Intrahepatic inferior vena cava is patent.? ? Miscellaneous:? No free abdominal fluid.? ? ? IMPRESSION:? ? Nonobstructing right renal calculi. ? No hydronephrosis. ? Hepatic steatosis. ? ? ? Dictated by: Rocky Rowan M.D. on 08/15/2021 at 11:50 ? ? Approved by: Rocky Rowan M.D. on 08/15/2021 at 11:51? CT scan - abdomen/pelvis: Radiologist's Impression: [address] [address] [address] Scan Report Signed Patient: Diandra Whitlock MR#: [id number] : 1990 Acct:[id number] Age/Sex: 31 / F Date of Service: 08/15/21 Loc: ED Accession Number: [id number] ?? Procedure: CT abdomen pelvis w con Ordering Provider: Dayanna Govea D.O. PROCEDURE:? CT ABDOMEN PELVIS W CON ? INDICATIONS:? right flank/RUQ pain, recent pancreatitis w/ labs ? TECHNIQUE:? After the administration of intravenous contrast, axial sections acquired from the lung bases to the pubic symphysis.? Coronal and sagittal reformats were performed.? For radiation dose reduction, the following was used:? automated exposure control, adjustment of mA and/or kV according to patient size.? ? COMPARISON:? None. ? FINDINGS:? Image quality:? Excellent.? ? Lung bases:? Unremarkable. Heart:? No significant findings. ? ABDOMEN: Liver:? The liver demonstrates low density consistent with hepatic steatosis. Gallbladder:? Unremarkable.? ? Biliary ducts:? Unremarkable.? ? Pancreas:? Unremarkable.? ? Spleen:? Unremarkable.? ? Adrenal Glands:? Unremarkable.? ? Kidneys and Ureters:? The right ureter is mildly dilated, possibly a recently passed stone.? No hydronephrosis.? The right kidney has cortical scarring. ? Stomach and Bowel:? Stomach, small bowel loops, and colon are unremarkable.? The appendix is normal. Peritoneum:? No abnormal intraperitoneal fluid.? No free air.? ? Ventral Wall: ? No hernias.? Abdominal Nodes:? No retroperitoneal or mesenteric adenopathy by size criteria.? Vessels:? Aorta and inferior vena cava are normal in size.? ? PELVIS: Pelvic Organs:? Simple appearing left ovarian cysts measuring up to 3 cm. Bladder:? Unremarkable.? ? Pelvic Nodes: No enlarged lymph nodes.? Miscellaneous: No hernias are seen. ? ? ? Bones:? Unremarkable.? IMPRESSION:? 1. No acute abnormality of the abdomen or pelvis. 2. No nephroureteral calculi.? The right ureter is mildly dilated, possibly a recently passed stone. 3. Normal appendix. 4. Hepatic steatosis.? ? ? Dictated by: Carlito Arnett M.D. on 08/15/2021 at 12:33 ? ? Approved by: Carlito Arnett M.D. on 08/15/2021 at 12:38?? ECG Data Attestation: I personally reviewed and interpreted this ECG as follows: Prior ECG tracings: available for review Interpretation: Sinus rhythm rate of 70 6p are 144 QRS is 76 and QTC of 407. No acute ST elevation or depression noted. Patient has prior EKG from 10/13/[address] segment changes appreciated. MDM Narrative Medical decision making narrative: This is a 31-year-old female comes in with complaint of right upper quadrant flank pain patient has had symptoms intermittently for several months. She has been admitted before, she has had negative urine cultures but today has bacteria in her urine. No fevers. She has had 1 episode of vomiting in the ER. She has had pain with minimal improvement Toradol, patient had abdominal ultrasound which does not show any acute clear causes for her symptoms. CT shows some mildly dilated right ureter but no stranding or other changes there is some cortical scarring. Patient does have some hepatic steatosis. There is no hydro noted. Patient could have potential for stone that is not visualized but has no t had any clear findings on past imaging. She did have a lipase that was [address] [facility] which has normalized today she has a mild leukocytosis. Normal renal function, electrolytes labs. She has bacteria, no rbc's making kidney stone less likely and 1-5 wbc's with 1-5 squamous epithelials. Discussed with patient this time I would treat her for potential pyelonephritis. Patient was given prescription for oral antibiotics short course of narcotic pain medication she does still have some that were prescribed to her recently. Patient is not actively vomiting in the department. Discharge Plan Departure Patient Disposition: Home Clinical Impression: Pyelonephritis Instructions: DI for Kidney Infection Activity Restrictions/Additional Instructions: Your imaging today does not show any signs of pancreatitis. Your labs have normalized compared to your prior labs at the other emergency department visit. Your urine shows bacteria but no other clear signs of infection but with your right flank pain I would treat you as a pyelonephritis at this time. You may continue to take prescription pain medication as prescribed. This medication can make you sleepy do not drive, perform hazardous activities or make any major decisions while taking it. This medication will make you constipated please take a stool softener once to twice daily until stools are soft and regular. Take antibiotics until completely gone. You may take 1-2 tablets of Benadryl every 6 hours as needed for nausea Prescription sent to [facility] in [place]. Please return for fevers, new or changing symptoms, persistent vomiting, black or bloody stools, passing out, new chest pain or shortness of breath or other new or concerning symptoms. Prescriptions: New ciprofloxacin HCl 500 mg tablet 500 mg PO Q12H Qty: 14 0RF oxycodone-acetaminophen [Percocet] 5-325 mg tablet 1 tab PO Q6H PRN (Reason: pain) Qty: 5 0RF No Action losartan 100 mg Tablet 100 mg PO DAILY 0RF escitalopram oxalate 20 mg Tablet 20 mg PO DAILY 0RF metoprolol succinate 50 mg Tablet Extended Release 24 Hr 50 mg PO DAILY 0RF acetaminophen 325 mg Tablet 650 mg PO Q6H PRN (Reason: Mild Pain (Scale Score 1-4)) 0RF lidocaine [Lidoderm] 5 % Adhesive Patch,Medicated 1 patch TOPICAL DAILY 0RF gabapentin 300 mg Capsule 300 mg PO TID 0RF Rx Instructions: take for 7 days ondansetron 4 mg Tablet,Disintegrating 4 mg PO Q8H PRN (Reason: Nausea) 0RF
[2021-08-15 09:37] LABS: Add Manual Diff / Slide Review NO; Basophils Absolute Auto 100 /uL (0-100); Basophils Percent Auto 0.6 % (0-2); Eosinophils Absolute Auto 200 /uL (0-450); Eosinophils Percent Auto 1.4 % (2-4); Hematocrit 42.5 % (36-46); Hemoglobin 14.5 g/dL (12.0-16.0); Lymphocytes Absolute Auto 2100 /uL (1100-4500); Lymphocytes Percent Auto 17.7 % (25-40); Mean Corpuscular HGB Conc 34.1 % (30-36); Mean Corpuscular Hemoglobin 28.3 PG (26-34); Mean Corpuscular Volume 83.1 fL (80-100); Monocytes Absolute Auto 500 /uL (0-900); Monocytes Percent Auto 4.4 % (3-14); Neutrophils Absolute Auto 8900 /uL (1500-7000); Neutrophils Percent Auto 75.9 % (50-75); Platelet Count 305 X10^3/uL (150-400); Red Blood Cell Count 5.11 X10^6/uL (4.0-5.2); White Blood Cell Count 11.7 X10^3/uL (4.5-11.0)
[2021-08-15 09:43] LABS: Alanine Aminotransferase 17 IU/L (<35); Albumin 4.3 g/dL (3.5-5.0); Albumin Globulin Ratio 1.2 (1.0-2.8); Alkaline Phosphatase 96 U/L (38-126); Aspartate Aminotransferase 22 IU/L (14-36); BUN Creatinine Ratio 11.8 (6-22); Bilirubin Total 0.7 mg/dL (0.2-1.3); Blood Urea Nitrogen 8 mg/dL (7-17); Carbon Dioxide 27 mmol/L (22-32); Chloride 103 mmol/L (98-107); Estimated Glomerular Filt Rate > 60.0 mL/min (>60); Globulin 3.6 g/dL (1.7-4.1); Glucose 98 mg/dL (70-100); HEMOLYSIS < 15 (0-50); Lipase 97 U/L (23-300); Sodium 138 mmol/L (137-145); Total Protein 7.9 g/dL (6.3-8.2)
--- NOTE | 2021-08-15 10:16 | DI.US.S_ITS ---
PROCEDURE: US ABDOMEN COMPLETE INDICATIONS: RIGHT FLANK/ RUQ PAIN TECHNIQUE: Real-time scanning was performed of the abdominal and retroperitoneal organs, with image documentation. COMPARISON: None. FINDINGS: Liver: Increased hepatic parenchymal echogenicity indicative of hepatic steatosis. Gallbladder: Normally distended gallbladder. No gallbladder wall thickening, sludge, gallstone, or pericholecystic fluid. Biliary ducts: Normal caliber. Pancreas: Visualized portions of the pancreas are sonographically normal. Spleen: Spleen is normal in size and homogeneous in echotexture. Kidneys: There are two nonobstructing right renal calculi measuring 7 mm in the upper pole and 1.4 cm in the lower pole. No hydronephrosis. Aorta: Visualized aorta is normal in caliber at less than 3 cm. Iliacs: Proximal common iliac arteries are normal in caliber at less than 2.5 cm. IVC: Intrahepatic inferior vena cava is patent. Miscellaneous: No free abdominal fluid. IMPRESSION: Nonobstructing right renal calculi. No hydronephrosis. Hepatic steatosis. Dictated by: Rocky Rowan M.D. on 08/15/2021 at 11:50 Approved by: Rocky Rowan M.D. on 08/15/2021 at 11:51
[2021-08-15 10:35] LABS: Bacteria Urine Many (>30); Culture Indicated Urine Cult Not Indicated; RBC Urine None Seen (0-5/HPF); Squamous Epithelial Cell Urine 1-5 /HPF (0-5/HPF); WBC Urine 1-5/HPF (0-5/HPF)
[2021-08-15] MEDS: KETOROLAC 30 MG/ML VIAL IV (10:40)
[2021-08-15] MEDS: SODIUM CHLORIDE 0.9% 1,000 ML 1000 ML IV (10:40)
[2021-08-15] MEDS: ONDANSETRON 4 MG/2 ML INJ IV (10:40)
[2021-08-15 10:43] LABS: Amylase 85 U/L (30-110)
--- NOTE | 2021-08-15 11:31 | DI.CT.S_ITS ---
PROCEDURE: CT ABDOMEN PELVIS W CON INDICATIONS: right flank/RUQ pain, recent pancreatitis w/ labs TECHNIQUE: After the administration of intravenous contrast, axial sections acquired from the lung bases to the pubic symphysis. Coronal and sagittal reformats were performed. For radiation dose reduction, the following was used: automated exposure control, adjustment of mA and/or kV according to patient size. COMPARISON: None. FINDINGS: Image quality: Excellent. Lung bases: Unremarkable. Heart: No significant findings. ABDOMEN: Liver: The liver demonstrates low density consistent with hepatic steatosis. Gallbladder: Unremarkable. Biliary ducts: Unremarkable. Pancreas: Unremarkable. Spleen: Unremarkable. Adrenal Glands: Unremarkable. Kidneys and Ureters: The right ureter is mildly dilated, possibly a recently passed stone. No hydronephrosis. The right kidney has cortical scarring. Stomach and Bowel: Stomach, small bowel loops, and colon are unremarkable. The appendix is normal. Peritoneum: No abnormal intraperitoneal fluid. No free air. Ventral Wall: No hernias. Abdominal Nodes: No retroperitoneal or mesenteric adenopathy by size criteria. Vessels: Aorta and inferior vena cava are normal in size. PELVIS: Pelvic Organs: Simple appearing left ovarian cysts measuring up to 3 cm. Bladder: Unremarkable. Pelvic Nodes: No enlarged lymph nodes. Miscellaneous: No hernias are seen. Bones: Unremarkable. IMPRESSION: 1. No acute abnormality of the abdomen or pelvis. 2. No nephroureteral calculi. The right ureter is mildly dilated, possibly a recently passed stone. 3. Normal appendix. 4. Hepatic steatosis. Dictated by: Carlito Arnett M.D. on 08/15/2021 at 12:33 Approved by: Carlito Arnett M.D. on 08/15/2021 at 12:38
[2021-08-15] MEDS: HYDROMORPHONE 1 MG INJ IV ×2 (11:58→13:51)
[2021-08-15] MEDS: CIPROFLOXACIN 400 MG/200 ML PIGGYBACK 200 MG IV (12:36)
== END 2021-08-15 14:11 | disposition home or self-care (01) ==
PROVIDERS: Emergency Provider Emergency Medicine
DX: N12 Tubulo-interstitial nephritis, not specified as acute or chronic (principal); Z87.891 Personal history of nicotine dependence; Z88.0 Allergy status to penicillin
CPT/HCPCS: 36415; 74177; 76700; 80053; 81003; 81015; 81025; 82150; 83690; 85025; 87077; 87086; 87186; 93005; 93010; 96361; 96365; 96375; 96376; 99284; J0744; J1170; J1885; J2405